=== PATIENT | male | born 1965 | race Caucasian/White ===

== ENCOUNTER → 2017-08-23 12:02 | Outpatient (CLI) | payer BC, SELFPAY ==
--- NOTE | 2017-08-23 12:09 | XR_ITS ---
XR finger RT min 2V CLINICAL INDICATION: Soft tissue swelling/mass ITS.REASON: GANGLION CYST ORDERING PHYSICIAN: Jennifer Harvey PATIENT AGE: 52 years FINDINGS: There is mild focal soft tissue swelling along the radial aspect of the PIP joint of the second finger. No abnormal calcifications evident. No bony or metallic density at this region. There are small lucencies noted involving the distal subarticular region of the second metacarpal and along the proximal and lateral aspect of the proximal phalanx of the index finger consistent with small subarticular cyst. IMPRESSION: Soft tissue swelling at the lateral aspect of the PIP joint of the second finger.
== END ==
PROVIDERS: PCP Nurse Practitioner Family; Visit Provider Nurse Practitioner Family
DX: M67.441 Ganglion, right hand (principal)
CPT/HCPCS: 73140

== ENCOUNTER → 2018-03-04 12:01 | Outpatient (CLI) | payer BC, SELFPAY ==
[2018-03-04 12:05] LABS: Microscopic, Urine URINE MICROSCOPIC (MICROSCOPIC)
[2018-03-04 12:17] LABS: Appearance,Urine CLEAR (Clear); Bilirubin,Urine Negative (Negative); Blood, Urine Negative (Negative); Color,Urine YELLOW (Yellow); Glucose,Urine (UA) Negative (Negative); Ketones,Urine Negative (Negative); Leukocyte Esterase,Urine Negative (Negative); Nitrate,Urine Negative (Negative); Protein,Urine Negative (Negative); Specific Gravity, Urine 1.015 (1.005-1.030); Urobilinogen,Urine 0.2 EU/dl (0.2)
[2018-03-04 12:19] LABS: Basophils # 0.1 K/mm3 (0-0.2); Basophils % 0.8 % (0.1-2.0); Eosinophils # 0.1 K/mm3 (0.0-0.4); Eosinophils % 1.2 % (0.1-12.0); Hematocrit 51.4 % (42.0-52.0); Hemoglobin 16.3 g/dL (14.1-18.0); Lymphocytes # 2.6 K/mm3 (0.7-4.5); Lymphocytes % 26.1 K/mm3 (10-50); Mean Corpuscular HGB Conc 31.7 g/dL (31.8-35.4); Mean Corpuscular Hemoglobin 30.2 pg (27.0-31.2); Mean Corpuscular Volume 95.1 fl (80-94); Mean Platelet Volume 7.2 fl (7.4-10.4); Monocytes # 0.5 K/mm3 (0.1-1.0); Monocytes % 4.6 % (1.7-9.3); Neutrophils # 6.7 K/mm3 (1.8-7.8); Neutrophils % 67.3 % (37.0-80.0); Platelet Count 234 K/mm3 (142-424); Red Blood Count 5.41 M/mm3 (4.60-6.20); Red Cell Distribution Width 12.7 % (11.5-17.5); White Blood Count 9.9 K/mm3 (4.8-10.8)
[2018-03-04 13:31] LABS: Bacteria,Urine 2+ /lpf; Squamous Epithelial Cell,Urine Occasional #/hpf (0-5); WBC,Urine Occasional #/hpf (0-3)
[2018-03-04 14:46] LABS: Anion Gap 10.8 mEq/L (5-15); Blood Urea Nitrogen 14 mg/dL (7-18); Carbon Dioxide 31 mmol/L (21.0-32.0); Chloride 103 mmol/L (98-107); Creatinine,Serum 1.04 mg/dL (0.70-1.30); Estimated Glomerular Filt Rate 74 ml/min (>60); GFR (African American) 90 ML/MIN (>60); Glucose 96 mg/dL (74-106); Potassium 3.8 mmoL/L (3.5-5.1); Sodium 141 mmol/L (136-145)
== END ==
PROVIDERS: Visit Provider Surgery
DX: K42.0 Umbilical hernia with obstruction, without gangrene (principal)
CPT/HCPCS: 36415; 80048; 81001; 85025; 87086; 93005

== ENCOUNTER → 2018-09-14 08:15 | Outpatient (CLI) | payer BC, SELFPAY ==
[2018-09-14 10:09] LABS: Alanine Aminotransferase 32 U/L (12-78); Albumin Level 3.7 gm/dL (3.4-5.0); Albumin/Globulin Ratio 1.2 (1.1-1.8); Alkaline Phosphatase 66 U/L (46-116); Aspartate Amino Transferase 17 U/L (15-37); Bilirubin,Total 0.5 mg/dL (0.2-1.0); Blood Urea Nitrogen 20 mg/dL (7-18); Calcium 9.1 mg/dL (8.5-10.1); Carbon Dioxide 27 mmol/L (21.0-32.0); Chloride 105 mmol/L (98-107); Chol/HDL Ratio 4.7 (1-3.5); Cholesterol 169 mg/dL (140-200); Creatinine,Serum 1.13 mg/dL (0.70-1.30); Estimated Glomerular Filt Rate 67 ml/min (>60); GFR (African American) 82 ML/MIN (>60); Globulin 3.1 gm/dl (1.3-3.2); Glucose 94 mg/dL (74-106); HDL Cholesterol 36 mg/dL (27-67); LDL Cholesterol 96 mg/dL (0-130); Sodium 142 mmol/L (136-145); Total Protein,Serum 6.8 gm/dL (6.4-8.2); Triglycerides 186 mg/dL (30-200); VLDL Cholesterol 37 mg/dL (0-40)
[2018-09-15 17:32] LABS: Testosterone,Total 268 ng/dL (264-916)
== END ==
PROVIDERS: Visit Provider Nurse Practitioner Family
DX: E78.00 Pure hypercholesterolemia, unspecified (principal); N52.9 Male erectile dysfunction, unspecified; Z12.5 Encounter for screening for malignant neoplasm of prostate
CPT/HCPCS: 36415; 80053; 80061; 84403; 84443; G0103

== ENCOUNTER → 2020-03-17 10:51 | Outpatient (CLI) | payer BC, SELFPAY ==
[2020-03-17 15:38] LABS: Coronavirus 19 IgG Antibody Negative (Negative); Coronavirus 19 IgM Antibody Negative (Negative)
== END ==
PROVIDERS: Visit Provider Surgery
DX: Z01.818 Encounter for other preprocedural examination (principal); Z12.11 Encounter for screening for malignant neoplasm of colon; Z86.010 Personal history of colon polyps
CPT/HCPCS: 36415; 86328

== ENCOUNTER 2020-03-18 06:24 | Day surgery (SDC) | payer BC, SELFPAY ==
[2020-03-17 10:24] VITALS: BMI 29.9
[2020-03-18 06:44] VITALS: BP 137/78; PULSE 87; RESP 18; TEMP 36.4; O2SAT 97
--- NOTE | 2020-03-18 07:03 | P.PN_ITS ---
[facility] Anesthesia Checklist - Patient Identification Patient Identification: Arm Band, Verbal (Name & ) - Structural Data Admitted From: Home Planned Operative Procedure/s: colon Consent for Planned Operative Procedure(s) Verified: Yes Verified Documents: History and Physical - NPO Status Verified Time NPO: 00:00 - Additional verifications Patient : No Anesthesia Reactions: No Hx Blood Transfusions: No Blood Transfusion Reaction: No Cephalosporin Allergy: No Previous Colonoscopy: No - Cardiovascular Assessment Heart Sounds: S1 & S2 Pulse Strength: Baseline Pulse Rhythm: Regular Peripheral Edema: No - Airway Assessment C-Spine Mobility Assessed: Yes TMJ Mobility Assessed: Yes Dentition: Edentulous - Neurological Assessment Level of Consciousness: Awake, Alert, Appropriate Hx Seizures: No Numbness or tingling in extremities: No - Anesthesia Plan Anesthesia Risk discussed: Yes Anesthesia Plan: Verified ASA Class: II Anesthesia Type: MAC [facility] History I have reviewed the patient's past medical history: Yes Medical History: Reports:: Hyperlipidemia Denies:: Cancer, Diabetes Mellitus Type 1, Diabetes Mellitus Type 2, Internal Pacemaker, Lung Disease, MRSA, Seizures *Have you ever received a pneumonia vaccine?: No *Have you received a flu vaccine this season?: No Other Medical History: Denies: Blood Transfusion Reaction Anesthesia experience/problems:: none Other Surgeries: Yes: Colonoscopy, Hernia Repair, Other. No: Pacemaker Amputation: No Fractures: No - *Social History Last grade of school completed: 9th or 10th Smoking Status: Current every day smoker Tobacco Type: cigarettes # Packs/Day (cigarettes): 1 Alcohol Intake: former Substance Use Type: denies use *Occupational Status:: employed Housing: house Household Members: spouse *Travel in the last 8 weeks: None Family Hx:: Cancer, Hyperlipidemia, Hypertension
[2020-03-18 07:19] VITALS: O2SAT 97
[2020-03-18 08:00] VITALS: BP 113/69; PULSE 73; RESP 18; TEMP 36.2; O2SAT 92
--- NOTE | 2020-03-18 08:03 | HMH.SCOPE ---
- Procedure: Date: 03/18/20 Patient Date of :: 1965 Procedure Performed:: Colonoscopy with polypectomy by means other than snare Indications:: History of colon polyps Diverticulosis Hemorrhoids Performing Provider:: Timbo Coronado MD Referring Provider:: . Sedation:: Monitored anesthesia care Procedure:: After informed consent was obtained the patient was taken to the endoscopy suite. Sedation ensued after the patient was transferred to the left lateral decubitus position. Pulse, blood pressure, and oxygen saturation were monitored throughout the procedure. Digital rectal exam revealed no significant abnormality. The colonoscope was placed in position. The entire colon was evaluated. The colonoscope was carefully removed and the patient was transferred to recovery in stable condition. Please see findings and specimens below for detail. Findings:: Bowel preparation relatively fair Tattoo site in right colon appeared normal Significant sigmoid spasticity/tortuosity Hemorrhoidal tags Unchanged scattered diverticulosis (most significant in sigmoid colon) Polyps (see specimens) Specimens:: Sessile polyp at 70 cm Polyp at 65 cm Recommendations:: Timing of repeat colonoscopy is pending pathology but will likely be around 3 years secondary to history of significant polyps, spasticity/tortuosity, and polyps noted on short-term repeat evaluation. Complications:: No immediate Estimated blood obtained (mL): 1
[2020-03-18 08:10] VITALS: BP 119/72; PULSE 64; RESP 18; O2SAT 92
[2020-03-18 08:20] VITALS: BP 125/81; PULSE 61; RESP 18; O2SAT 95
[2020-03-18 08:30] VITALS: BP 124/73; PULSE 66; RESP 18; O2SAT 96
== END 2020-03-18 08:33 | disposition home or self-care (01) ==
LOC: OUTP 06:25
PROVIDERS: PCP Family Medicine; Visit Provider Surgery
PROC: 0DJD8ZZ Inspection of Lower Intestinal Tract, Via Natural or Artificial Opening Endoscopic (ICD-10-PCS; CPT 45380; principal; 2020-03-18 07:30)
DX: Z12.11 Encounter for screening for malignant neoplasm of colon (principal); K56.2 Volvulus; K63.5 Polyp of colon; K57.30 Diverticulosis of large intestine without perforation or abscess without bleeding; K64.0 First degree hemorrhoids; Z86.010 Personal history of colon polyps
CPT/HCPCS: 45380; J2704

== ENCOUNTER → 2021-03-18 09:27 | Outpatient (CLI) | payer BC, SELFPAY ==
--- NOTE | 2021-03-18 09:34 | XR_ITS ---
PROCEDURE: XR LUMBAR SPINE MIN 4V CLINICAL INDICATION: ACUTE LT SIDED LOW BACK PAIN W/ LT SIDED SCIATICA COMPARISON: CR ABDACU ABD ACUTE(MUL VIEWS) from 07/20/2015 FINDINGS: There is moderate thoracolumbar scoliosis convex left with rotary component. Facet arthritic changes are present on the left at L5-S1. The SI joints have an unremarkable appearance. No acute fracture or dislocation is evident. There is degenerative disc disease T11-T12, T12-L1, L1-L2, L2-L3, L3-L4 IMPRESSION: Scoliosis with degenerative changes as described above Dictated by: Juan Edmonds MD 03/18/2021 17:45 Juan Edmonds MD in [place] 03/18/2021 17:45
== END ==
PROVIDERS: PCP Nurse Practitioner Family; Visit Provider Nurse Practitioner Family
DX: M54.42 Lumbago with sciatica, left side (principal)
CPT/HCPCS: 72110

== ENCOUNTER → 2021-11-15 07:23 | Outpatient (CLI) | payer BC, SELFPAY ==
--- NOTE | 2021-11-15 | CA_ITS ---
APPROVED REPORT Exam: Exercise Treadmill Technologist: Sarah Cooper, Ht: 5 ft 10 in Wt: 227 lbs BSA: 2.20 m2 HR: 82 bpm BP: 128/84 mmHg Medical History Medications: BP MED,,,,, Stress Test Details Test: Asher HR Resting HR: 94 bpm Max Heart Rate (APMHR): 162.482106 bpm Max HR Achieved: 136 bpm Target HR (85% APMHR): 137.675154 bpm % of APMHR: 83.95 Recovery HR: 98 bpm BP Resting BP: 144.0/88.0 mmHg Max BP: 166.0/88.0 mmHg Recovery BP: 145.0/85.0 mmHg ECG Resting ECG: NSR, left posterior fascicular block, ST-T abns inferiorly Clinical Exercise duration: 09:27 min Highest Stage Achieved: III held for completion Exercise capacity: 10.1 METs Stress ECG Conclusion Exercised 9:27 into stage 3 of Asher Protocol (stage 3 held to completion). Max HR: 134 % of PM: 83% Max BP: 166/88 METs: 10.1 Test stopped Due to: Leg cramping/claudication Symptoms: No CP. Cramping/Claudication on R lower leg. Arrhythmias/Ectopy: Occ PVC. ST-T Changes: Exaggeration of baseline ST-T abns in inferior leads. Otherwise normal ST response to exercise. Conclusion: Probably normal GXT to HR achieved but with decreased sensitivity due to baseline abns. GXT only (no imaging). Test Summary Stage 3 02:00 14.0 3.4 130 . . . . REST . . . . . . . Standing REST 05:21 0.0 0.0 94 . 144/ 88 . . Stage 1 01:00 10.0 1.7 100 . . . . Stage 1 02:00 10.0 1.7 103 . . . . Stage 1 03:00 10.0 1.7 107 . 162/ 88 . . Stage 2 01:00 12.0 2.5 109 . . . . Stage 2 02:00 12.0 2.5 114 . . . . Stage 2 03:00 12.0 2.5 119 . 166/ 88 . . Stage 3 01:00 14.0 3.4 126 . . . . Stage 3 02:00 14.0 3.4 130 . . . . Stage 3 . . . . . . . Stage held Stage 3 03:00 14.0 3.4 132 . . . . Stage 3 . . . . . . . Stage resumed Stage 3 03:27 14.0 3.4 134 . . . Stop exercise at 09:27 RECOVERY 01:00 0.0 0.0 125 . 144/ 86 . . RECOVERY 02:00 0.0 0.0 110 . 144/ 86 . . RECOVERY 03:00 0.0 0.0 105 . 141/ 92 . . RECOVERY 04:00 0.0 0.0 104 . 146/ 83 . . RECOVERY 05:00 0.0 0.0 97 . 145/ 85 . . RECOVERY 05:24 0.0 0.0 98 . 145/ 85 . . Electronically signed by : Kayden Coker MD 11/16/2021 21:04:02
--- NOTE | 2021-11-15 07:28 | CT_ITS ---
FINAL REPORT CLINICAL HISTORY: HX OF TOBACCO USE smoker, 1 ppd x years copd FINDINGS: Low-Dose Chest CT CTDI vol (mGy): 2.90 DLP (mGy-cm): 96.38 Axial images were obtained from the lung apex to the mid abdomen by computed tomography. Low-dose protocol was utilized. There is no axillary adenopathy. There is no mediastinal adenopathy. There are multiple calcified hilar lymph nodes. The heart is proper size. There is no pericardial or pleural effusion. Limited images of the upper abdomen are unremarkable. Lung window images demonstrate mild changes of emphysema and mild pulmonary scarring. There are numerous calcified granulomas in both lungs. There are several small noncalcified pulmonary nodules including a 6 mm right lower lobe nodule on image 50 and a 6 mm left lower lobe nodule on image 47. IMPRESSION: Several small noncalcified pulmonary nodules bilaterally. Lung RADS category 3. Recommend 6 month follow-up low-dose chest CT. Reviewed, Interpreted and Dictated by Deniz Jackson III, MD Transcribed by Prudence Perdue Authenticated and [facility]
== END ==
PROVIDERS: PCP Nurse Practitioner Family; Visit Provider Family Medicine
DX: Z87.891 Personal history of nicotine dependence (principal); Z12.2 Encounter for screening for malignant neoplasm of respiratory organs; I49.49 Other premature depolarization
CPT/HCPCS: 71271; 93017

== ENCOUNTER → 2022-01-23 07:01 | Outpatient (CLI) | payer BC, SELFPAY | PROVIDERS: PCP Family Medicine; Visit Provider Surgery | DX: Z01.812 Encounter for preprocedural laboratory examination (principal); Z20.822 Contact with and (suspected) exposure to COVID-19; Z12.11 Encounter for screening for malignant neoplasm of colon | CPT/HCPCS: C9803; U0003; U0005 ==

== ENCOUNTER 2022-01-24 10:18 | Day surgery (SDC) | payer BC, SELFPAY ==
[2022-01-19 14:48] VITALS: BMI 33.0
[2022-01-24 10:47] VITALS: BP 135/87; PULSE 73; RESP 18; TEMP 36.4; O2SAT 93
[2022-01-24 11:05] VITALS: O2SAT 93
--- NOTE | 2022-01-24 11:07 | P.PN_ITS ---
[facility] Medical History History of gastroesophageal reflux (GERD) Hypertension Poor peripheral circulation Surgical History History of hernia repair Family History Other No significant family history Social History Smoking Status: Current every day smoker tobacco type: cigarettes packs per day: 1 alcohol intake: former substance use type: denies use current occupational status: employed Travel in the last 8 weeks: None household members: spouse housing: house current occupation: 3M current occupational exposures/hazards: No caffeine: Yes [facility] Anesthesia Checklist Patient Identification Patient Identification: Arm Band Structural Data Admitted From: Home Planned Operative Procedure/s: colonoscopy Consent for Planned Operative Procedure(s) Verified: Yes Verified Documents: Surgical Consent and History and Physical NPO Status Verified Time NPO: 00:00 Additional verifications Anesthesia Reactions: No Hx Blood Transfusions: No Blood Transfusion Reaction: No Airway Assessment C-Spine Mobility Assessed: Yes TMJ Mobility Assessed: Yes Dentition: Edentulous Neurological Assessment Level of Consciousness: Awake and Alert Anesthesia Plan Anesthesia Risk discussed: Yes Anesthesia Plan: Verified ASA Class: II Anesthesia Type: MAC
[2022-01-24 11:43] VITALS: BP 107/69; PULSE 71; RESP 16; TEMP 36.3; O2SAT 93
--- NOTE | 2022-01-24 11:43 | HMH.SCOPE ---
Procedure: Date: 01/24/22 Patient Date of :: 1965 Procedure Performed:: Colonoscopy with polypectomy Indications:: History of colon polyps Last colonoscopy February 2020 revealed a right colon tattoo (prior serrated adenoma excision site) that was essentially normal. Lack of relaxation was fairly significant. Unchanged diverticulosis and hemorrhoidal tissue noted. An adenoma was excised at 65 cm. Performing Provider:: Timbo Coronado MD Referring Provider:: . Sedation:: Monitored anesthesia care Procedure:: After informed consent was obtained the patient was taken to the endoscopy suite. Sedation ensued after the patient was transferred to the left lateral decubitus position. Pulse, blood pressure, and oxygen saturation were monitored throughout the procedure. Digital rectal exam revealed no significant abnormality. The colonoscope was placed in position. The entire colon was evaluated. The colonoscope was carefully removed and the patient was transferred to recovery in stable condition. Please see findings and specimens below for detail. Findings:: Bowel preparation moderate Profound lack of relaxation Fairly severe tortuosity Unchanged diverticulosis Unchanged hemorrhoids (hemorrhoidal tag/cushions) Polyps (see specimens) Specimens:: Sessile lobulated polyp at 50 cm (cold snare) Recommendations:: Timing of repeat colonoscopy is pending pathology but likely be between 2-3 years secondary to ongoing limitations in visualization and history of significant polyps. Complications:: No immediate Estimated blood obtained (mL): 0
[2022-01-24 11:53] VITALS: BP 122/70; PULSE 65; RESP 16; O2SAT 92
[2022-01-24 12:03] VITALS: BP 117/72; PULSE 59; RESP 16; O2SAT 96
[2022-01-24 12:13] VITALS: BP 133/73; PULSE 69; RESP 16; TEMP 36.3; O2SAT 96
== END 2022-01-24 12:13 | disposition home or self-care (01) ==
PROVIDERS: PCP Family Medicine; Visit Provider Surgery
PROC: 0DJD8ZZ Inspection of Lower Intestinal Tract, Via Natural or Artificial Opening Endoscopic (ICD-10-PCS; CPT 45385; principal; 2022-01-24 11:30)
DX: Z12.11 Encounter for screening for malignant neoplasm of colon (principal); K63.5 Polyp of colon; Z86.010 Personal history of colon polyps; F17.210 Nicotine dependence, cigarettes, uncomplicated; Z79.899 Other long term (current) drug therapy
CPT/HCPCS: 45385; 88305

== ENCOUNTER → 2022-04-10 07:43 | Outpatient (CLI) | payer BC, SELFPAY ==
--- NOTE | 2022-04-10 07:47 | CT_ITS ---
FINAL REPORT TECHNIQUE: Axial images were obtained from the lung apex to the mid abdomen by computed tomography. Coronal reformatted images were obtained. This study was performed with techniques to keep radiation doses as low as reasonably achievable, (ALARA). Individualized dose reduction techniques using automated exposure control or adjustment of mA and/or kV according to the patient''s size were employed. CLINICAL HISTORY: ABN CT OF CHEST, 6 month follow up COMPARISON: November 15, 2021 FINDINGS: There is no axillary adenopathy. There are multiple calcified mediastinal and hilar lymph nodes. Heart size is normal. There is no pericardial or pleural effusion. Limited images of the upper abdomen are unremarkable. There are numerous calcified granulomas bilaterally. A right lower lobe nodule measures 6 mm and was 6 mm, well seen on image 45. There is a stable 6 mm pleural base nodule in the left lower lobe well seen on image 44. Other small nodules are stable. No new mass or nodule is identified. There are mild changes of emphysema. IMPRESSION: 6 mm right lower lobe nodule, stable. 6 mm pleural based left lower lobe nodule, stable. Recommend additional follow-up in 12 months. Reviewed, Interpreted and Dictated by Deniz Jackson III, MD Transcribed by Prudence Perdue Authenticated and [facility]
== END ==
PROVIDERS: PCP Family Medicine; Visit Provider Family Medicine
DX: R93.89 Abnormal findings on diagnostic imaging of other specified body structures (principal)
CPT/HCPCS: 71250

== ENCOUNTER → 2022-08-30 10:41 | Outpatient (CLI) | payer BC, SELFPAY ==
--- NOTE | 2022-08-30 10:51 | XR_ITS ---
FINAL REPORT CLINICAL HISTORY: BACK PAIN COMPARISON: 03/18/2021 FINDINGS: LUMBOSACRAL SPINE SERIES Five views of the lumbosacral spine were obtained. There is no fracture present. Lumbar scoliosis convex to the left measuring about 35 degrees. On the lateral view there are mild to moderate hypertrophic changes at L2-3, L3-4, and L5-S1. IMPRESSION: Degenerative changes with no acute process. Reviewed, Interpreted and Dictated by Du Benavides MD Transcribed by Ladan Lew Authenticated and [facility]
== END ==
PROVIDERS: PCP Family Medicine; Visit Provider Family Medicine
DX: M54.50 Low back pain, unspecified (principal)
CPT/HCPCS: 72110

== ENCOUNTER → 2022-09-06 07:56 | Outpatient (CLI) | payer BC, SELFPAY ==
--- NOTE | 2022-09-06 08:00 | US_ITS ---
FINAL REPORT CLINICAL HISTORY: AAA FINDINGS: Limited sonographic images of the abdominal aorta were obtained. The aorta measures up to 1.8 cm. No significant plaque disease is present. IMPRESSION: No evidence of abdominal aortic aneurysm. Reviewed, Interpreted and Dictated by Jesi Cristobal MD Transcribed by Elma Mike Authenticated and [facility]
== END ==
PROVIDERS: PCP Family Medicine; Visit Provider Family Medicine
DX: Z13.6 Encounter for screening for cardiovascular disorders (principal)
CPT/HCPCS: 76770

== ENCOUNTER 2023-08-20 17:28 | Outpatient (CLI) | payer BC, SELFPAY ==
--- NOTE | 2023-08-20 17:42 | ECG_ITS ---
APPROVED REPORT Exam: Resting ECG HR:83 bpm ECG Measurements Heart Rate 83 AXES MO 191 P 37 QRSd 93 QRS 46 QT 328 T 9 QTc 368 Conclusion SINUS RHYTHM WITH FREQUENT SUPRAVENTRICULAR PREMATURE COMPLEXES NONSPECIFIC T-WAVE ABNORMALITY ABNORMAL RHYTHM ECG UNCONFIRMED REPORT Electronically signed by : Kayden Coker MD 08/22/2023 08:28:10
== END 2023-08-20 23:59 | disposition home or self-care (01) ==
LOC: RT 17:29
PROVIDERS: PCP Family Medicine; Visit Provider Family Medicine
DX: I49.9 Cardiac arrhythmia, unspecified (principal)
CPT/HCPCS: 93005

== ENCOUNTER 2023-08-22 09:47 | Outpatient (CLI) | payer BC, SELFPAY ==
--- NOTE | 2023-08-22 | US_ITS ---
FINAL REPORT CLINICAL HISTORY: smoker, PVD-varicosities, cardiac arrhythmia, Right leg pain x 8 years, bilateral leg weakness with claudication COMPARISON: None FINDINGS: ANKLE-BRACHIAL PRESSURE INDICES Pressure indices are as follows: RIGHT LOWER EXTREMITY: Ankle-brachial pressure index: 0.85 Comments: Mildly depressed LEFT LOWER EXTREMITY: Ankle-brachial pressure index: 1.0 Comments: Normal IMPRESSION: Mildly depressed on the right which may be related to mild arterial occlusive disease. No evidence of significant obstructive peripheral vascular disease of the left lower extremity. Reviewed, Interpreted and Dictated by Du Benavides MD Transcribed by Ladan Lew Authenticated and . [facility]
[2023-08-22 10:57] LABS: Basophils # 0.1 K/mm3 (0-0.2); Basophils % 0.7 % (0.1-2.0); Eosinophils # 0.1 K/mm3 (0.0-0.4); Eosinophils % 1.1 % (0.1-12.0); Hematocrit 51.4 % (42.0-52.0); Hemoglobin 16.6 g/dL (14.1-18.0); Lymphocytes # 1.9 K/mm3 (0.7-4.5); Lymphocytes % 21.5 % (10-50); Mean Corpuscular HGB Conc 32.3 g/dL (31.8-35.4); Mean Corpuscular Hemoglobin 31.6 pg (27.0-31.2); Mean Corpuscular Volume 98.1 fl (80-94); Mean Platelet Volume 8.2 fl (7.4-10.4); Monocytes # 0.5 K/mm3 (0.1-1.0); Monocytes % 5.8 % (1.7-9.3); Neutrophils # 6.1 K/mm3 (1.8-7.8); Neutrophils % 70.9 % (37.0-80.0); Platelet Count 195 K/mm3 (142-424); Red Blood Count 5.24 M/mm3 (4.60-6.20); Red Cell Distribution Width 13.4 % (11.5-17.5); White Blood Count 8.6 K/mm3 (4.8-10.8)
[2023-08-22 11:42] LABS: Anion Gap 8.4 mEq/L (5-15); Blood Urea Nitrogen 21 mg/dl (9-20); Carbon Dioxide 29 mmol/L (22.0-30.0); Chloride 107 mmol/L (98-107); Estimated Glomerular Filt Rate 68 ml/min (>60); GFR (African American) 83 ML/MIN (>60); Glucose 86 mg/dl (74-100); Potassium 4.4 mmoL/L (3.5-5.1); Sodium 140 mmol/L (136-145)
[2023-08-22 12:01] LABS: Troponin I < 0.01 ng/ml (0.00-0.034)
[2023-08-22 12:12] LABS: Thyroid Stimulating Hormone 2.04 uIU/mL (0.465-4.68)
== END 2023-08-22 23:59 | disposition home or self-care (01) ==
LOC: RT 09:50
PROVIDERS: Family Medicine; PCP Family Medicine; Visit Provider Family Medicine
DX: I49.9 Cardiac arrhythmia, unspecified (principal); R07.89 Other chest pain; R29.898 Other symptoms and signs involving the musculoskeletal system
CPT/HCPCS: 36415; 80048; 84443; 84484; 85025; 93225; 93923

== ENCOUNTER 2023-08-27 11:15 | Outpatient (CLI) | payer BC, SELFPAY ==
--- NOTE | 2023-08-27 11:16 | CA_ITS ---
APPROVED REPORT EXAM: Comprehensive 2D, Doppler, and color-flow Echocardiogram Trace Evidence Technician: Zonia Wyatt RVT Ht: 5 ft 10 in Wt: 238lbs BSA: 2.25 BP: 158/93 mmHg Indications: CP,EDEMA,ABN EKG,A-FIB,AV BLOCK,HTN,SMOKER,SEXTON,EF CHECK PRE PACER PLACEMENT TDS-LIMITED WINDOWS 2D Dimensions LA Volume 62.70 mL LA Volume Index 27.87 mL/m2 (M/F) 16-34 M-Mode Dimensions RVDd 3.23 cm (0.9-2.6) LA Diam 4.89 cm (1.9-4.0) LVDd 3.74 cm (3.5-5.7) LVDs 2.68 cm (3.5-5.7) IVSd 1.10 cm (0.6-1.1) PWd 0.51 cm (0.6-1.1) EF (Teich) 55.50% FS 28.30% EDV (Teich) 59.60 mL TAPSE 2.81 (<1.7) ESV (Teich) 26.50 mL LV Diastology E Decel Time 150 (160-240 msec) E/A Ratio 0.9 Aortic Valve INDIRA Index 1.84 cm2/m2 AoV Peak Rommel. 114.0 (50-130 cm/s) AO Peak GR. 5.20 mmHg AO Mean GR. 3.10 (<5 mmHg) AO VTI 22.0 (18-25 cm) INDIRA (VTI) 4.24 (2.5-4.5 cm2) Mitral Valve MV E Max Rommel. 75.0 (40-130 cm/s) MV A Velocity 79.0 (40-130 cm/s) E/A Ratio 0.94 MV PHT 44.0 ms Pulmonary Valve PV Peak Velocity 88.0 (50-150 cm/s) Tricuspid Valve TR P. Velocity 203.00 cm/s RAP Estimate 10.00 mmHg RVSP 26.50 mmHg Left Ventricle The left ventricle is normal size. The left ventricular systolic function is normal. The left ventricular ejection fraction is within the normal range. There is normal left ventricular wall thickness. There is normal LV segmental wall motion. The left ventricular diastolic function is normal. LVEF is 55%. Right Ventricle Right ventricle is moderately dilated. Right ventricle is mildly hypokinetic. Atria The left atrium is mildly dilated. The right atrium size is normal. There is no Doppler evidence of interatrial shunt. Aortic Valve The aortic valve is mildly thickened. There is no aortic valvular stenosis. Trace aortic regurgitation is present. Mitral Valve The mitral valve is normal in structure. No evidence of mitral valve stenosis. Trace mitral regurgitation. Tricuspid Valve The tricuspid valve leaflets are thin and pliable. Trace tricuspid regurgitation. RVSP is normal. Pulmonic Valve The pulmonary valve is normal in structure. Trace pulmonic regurgitation. Great Vessels The aortic root is normal in size. The ascending aorta is normal in size. IVC is normal in size and collapses >50% with inspiration. Pericardium There is no pericardial effusion. Other Information Study Quality: Fair Conclusion Normal LV systolic function. Moderate RV dilation with mild reduction in RV function. Mild LA dilation. No significant valvular stenosis or regurgitation. Electronically signed by : Whit Pratt MD 08/29/2023 23:28:32
--- NOTE | 2023-08-27 11:16 | CA_ITS ---
FINAL REPORT CLINICAL HISTORY: edema in BLE, cp, smoker, SEXTON, HTN, AFIB, abn EKG. COMPARISON: None FINDINGS: Multiple transverse and longitudinal scans were performed of the femoral popliteal deep venous system, with augmentation and compression maneuvers. Normal phasic flow was noted in the visualized deep venous system. No intraluminal increased echogenicity is noted to suggest thrombus. There is normal compression and augmentation of the venous structures. No abnormal venous collaterals are seen. IMPRESSION: No evidence of deep venous thrombosis of the bilateral lower extremities. Reviewed, Interpreted and Dictated by Jesi Cristobal MD Transcribed by Ladan Lew Authenticated and [facility]
== END 2023-08-27 23:59 | disposition home or self-care (01) ==
LOC: RT 11:16
PROVIDERS: PCP Family Medicine; Visit Provider Physician Assistant
DX: R07.89 Other chest pain (principal); R60.0 Localized edema; I48.0 Paroxysmal atrial fibrillation; I45.5 Other specified heart block; R94.31 Abnormal electrocardiogram [ECG] [EKG]; I44.1 Atrioventricular block, second degree; I10 Essential (primary) hypertension; Z92.89 Personal history of other medical treatment; Z87.19 Personal history of other diseases of the digestive system; Z72.0 Tobacco use
CPT/HCPCS: 93306; 93970

== ENCOUNTER 2023-08-28 10:05 | Day surgery (SDC) | payer BC, SELFPAY ==
[2023-08-28] VITALS (8 sets, daily range): BP systolic 117–156; BP diastolic 74–108; PULSE 65–86; RESP 18; TEMP 36.9; O2SAT 94–98; BMI 34.1
--- NOTE | 2023-08-28 07:14 | IR_ITS ---
APPROVED REPORT Patient Location: Outpatient Field Tech: MEREDITH Palm RT (R) PROCEDURES 1. Pocket formation for Permanent Pacemaker Placement. 2. Placement of an atrial sensing and pacing coil into the right atrial appendage. 3. Placement of a ventricular sensing and pacing coil in the right ventricular apex. 4. Permanent Pacemaker Placement. INDICATION SICK SINUS SYNDROME, 4 SECOND PAUSE Informed consent was obtained prior to the procedure. COMPLICATIONS NONE Estimated Blood Loss: LESS THAN 10 ML TECHNIQUE 1% Lidocaine with epinephrine used to anesthetized the left anterior aspect of the chest. Scalpel was used to make the initial cutaneous incision while electrocautery was used to dissect down tinto the fascia. The fascia was lifted off the pectoralis muscle and digitally manipulated creating a pocket for the pacemaker. The patient was then placed in Trendelenburg position and the subclavian vein was accessed twice via the Selinger technique, there are two wires in the vein. A 6 Peruvian sheath was placed under fluoroscopic guidance into the subclavian vein over one of the wires while keeping the other wire in place within the subclavian vein. The dilator was removed from the sheath. Using fluoroscopic guidance, the ventricular lead was placed into the right ventricular apex, screwed and secured into place. Electronic interrogation proved acceptable thresholds and voltage within the lead. Using 3-0 silk, the ventricular lead was then secured into place. Lead was secured to the facia using the 3-0 silk. Following this, the sheath was pealed away. An additional 6 Peruvian fresh sheath and dilator was placed over the existing wire. Using fluoroscopic guidance, the atrial lead was the placed into the right atrial appendage and screwed and secured in place. Electrical interrogation demonstrated acceptable thresholds and voltage number. The atrial lead was then secured into place using 3-0 silk. 1 gram of Ancef was used to flush the pocket. Following the pacemaker generator being secured to the fascia and in place, Monocryl was used to close the subcutaneous layers while matt were used to close the cutaneous layer. A pressure dressing was placed and the patient was transferred to the postop holding area in stable condition for postoperative care. INTERROGATION Generator Model number: iKoa [id number] Generator Serial number: [id number] Atrial lead model number: Tendril STS [id number] Atrial lead serial number: [id number] P-wave: 5.0 mV Impedance: 450 Ohms Threshold: 0.75V@0.4ms Right Ventricular lead model number: Kiara STS [id number] Right Ventricular lead serial number: [id number] R-wave: 12.0mV Impedance: 790 Ohms Threshold: 0.75V@0.4ms Pacing Parameters: Mode: DDDR Base/Max Track: 70 ppm / 130 ppm No diaphragmatic stimulation at 10 volts. IMPRESSION 1. Successful pocket formation for Permanent Pacemaker Placement. 2. Successful placement of an atrial sensing and pacing coil into the right atrial appendage. 3. Successful placement of a ventricular sensing and pacing coil in the right ventricular apex. 4. Successful permanent Pacemaker Placement. PLAN 1. Postop wound care. Electronically signed by : Terry Grayson MD 08/30/2023 11:44:58
--- NOTE | 2023-08-28 10:07 | P.PNANES_ITS ---
[facility] Disclaimer: The information contained in this section may have been updated after the patient was seen, as this information can be updated by other users. Medical History Abnormal EKG Hypertension Poor peripheral circulation History of gastroesophageal reflux (GERD) Surgical History History of colonoscopy History of hernia repair Family History Other No significant family history Social History Smoking Status: Current every day smoker tobacco type: cigarettes packs per day: 1 alcohol intake: former substance use type: denies use current occupational status: employed Travel in the last 8 weeks: None household members: spouse housing: house current occupation: 3M current occupational exposures/hazards: No caffeine: Yes [facility] Anesthesia Checklist Patient Identification Patient Identification: Arm Band and Verbal (Name & ) Structural Data Admitted From: Home Planned Operative Procedure/s: Pacemaker placement Consent for Planned Operative Procedure(s) Verified: Yes NPO Status Verified Time NPO: 00:00 Additional verifications Anesthesia Reactions: No Hx Blood Transfusions: No Blood Transfusion Reaction: No Airway Assessment Mallampati Score:: Class III C-Spine Mobility Assessed: Yes TMJ Mobility Assessed: Yes Dentition: Edentulous Neurological Assessment Level of Consciousness: Awake Hx Seizures: No Numbness or tingling in extremities: No Anesthesia Plan Anesthesia Risk discussed: Yes Anesthesia Plan: Verified ASA Class: III Anesthesia Type: MAC
[2023-08-28 10:39] LABS: Basophils # 0.1 K/mm3 (0-0.2); Eosinophils # 0.1 K/mm3 (0.0-0.4); Eosinophils % 1.7 % (0.1-12.0); Hemoglobin 16.6 g/dL (14.1-18.0); Lymphocytes # 2.4 K/mm3 (0.7-4.5); Lymphocytes % 29.4 % (10-50); Mean Corpuscular HGB Conc 32.5 g/dL (31.8-35.4); Mean Corpuscular Hemoglobin 30.8 pg (27.0-31.2); Mean Corpuscular Volume 94.7 fl (80-94); Mean Platelet Volume 8.1 fl (7.4-10.4); Monocytes # 0.4 K/mm3 (0.1-1.0); Monocytes % 4.7 % (1.7-9.3); Neutrophils # 5.2 K/mm3 (1.8-7.8); Neutrophils % 63.2 % (37.0-80.0); Platelet Count 205 K/mm3 (142-424); Red Blood Count 5.38 M/mm3 (4.60-6.20); Red Cell Distribution Width 13.3 % (11.5-17.5); White Blood Count 8.3 K/mm3 (4.8-10.8)
[2023-08-28 10:47] LABS: Chloride 110 mmol/L (98-107)
[2023-08-28 10:48] LABS: Potassium 3.8 mmoL/L (3.5-5.1); Sodium 144 mmol/L (136-145)
[2023-08-28 10:51] LABS: Blood Urea Nitrogen 18 mg/dl (9-20); Calcium 9.6 mg/dl (8.4-10.2); Carbon Dioxide 32 mmol/L (22.0-30.0); Creatinine Clearance Estimated 109 mL/min (50-200); Estimated Glomerular Filt Rate 68 ml/min (>60); GFR (African American) 83 ML/MIN (>60); Glucose 97 mg/dl (74-100)
[2023-08-28 11:06] LABS: Anion Gap 5.8 mEq/L (5-15)
[2023-08-28] MEDS: CEFAZOLIN SODIUM 1 GM in 0.9 % SODIUM CHLORIDE 50 ML IV (12:04)
[2023-08-28] MEDS: diphenhydrAMINE 50MG/ML VIAL 50 MG IV (12:05)
[2023-08-28] MEDS: LIDOCAINE 1% W/EPI 1:100,000 20ML VIAL 20 ML SQ (12:05)
[2023-08-28] MEDS: CEFAZOLIN 1GM VIAL 1 GM TP (12:05)
--- NOTE | 2023-08-28 13:12 | XR_ITS ---
FINAL REPORT CLINICAL HISTORY: Confirm pacemaker/AID placement FINDINGS: No acute pulmonary opacity is present. There is no evidence of effusion or pneumothorax. Mediastinum is unremarkable. There is mild cardiomegaly. Left subclavian dual lead pacer device is identified. Leads project in the right atrium and right ventricle. IMPRESSION: Pacemaker as above. Reviewed, Interpreted and Dictated by Jesi Cristobal MD Transcribed by Elma Mike Authenticated and [facility]
== END 2023-08-28 15:01 | disposition home or self-care (01) ==
PROVIDERS: PCP Family Medicine; Visit Provider Internal Medicine
DX: I49.5 Sick sinus syndrome (principal); I48.0 Paroxysmal atrial fibrillation; I44.1 Atrioventricular block, second degree; F17.210 Nicotine dependence, cigarettes, uncomplicated; I10 Essential (primary) hypertension; R94.31 Abnormal electrocardiogram [ECG] [EKG]
CPT/HCPCS: 33208; 71045; 80048; 85025; C1785; C1898; J2704

== ENCOUNTER 2023-10-11 07:09 | Outpatient (CLI) | payer BC, SELFPAY ==
--- NOTE | 2023-10-11 | CA_ITS ---
APPROVED REPORT Exam: Pharmacologic Technologist: Patrica Madera, Ht: 5 ft 10 in Wt: 238 lbs BSA: 2.25 m2 HR: 70 bpm BP: 151/74 mmHg Rhythm: NSR, NS T wave abns inferiorly Indications: Dyspnea Medical History Medications: Aspirin,,,,, Metoprolol,,,,, Cardiac Risk Factors: HTN, Smoking Stress Test Details Test: LEXISCAN HR Resting HR: 70 bpm Max Heart Rate (APMHR): 160 bpm Max HR Achieved: 103 bpm Target HR (85% APMHR): 136 bpm % of APMHR: 64 Recovery HR: 84 bpm BP Resting BP: 151/74 mmHg Max BP: 151/74 mmHg Recovery BP: 146.0/83.0 mmHg ECG Resting ECG: NSR, NS T wave abns inferiorly Stress ECG: No significant ST changes Arrhythmia: PVCs, ventricular couplets Clinical Exercise duration: 04:00 min Highest Stage Achieved: Exercise capacity: 1.0 METs Stress ECG Conclusion During lexiscan pt experinced SOA, head discomfort, mild stomach discomfort. Ectopy: One ventricular couplet. Rare PVC noted. ST changes: None Conclusion: Unremarkable lexiscan stress. Myoview images reported separately. Test Summary REST . . . . . . . Sitting REST 04:53 . . 70 . 151/ 74 . . Stage 1 01:00 . . 90 . . . . Stage 2 01:00 . . 99 . 138/ 84 . . Stage 3 01:00 . . 90 . 148/ 82 . . Stage 4 01:00 . . 86 . . . Stop exercise at 04:00 RECOVERY 01:00 . . 83 . . . . RECOVERY 02:00 . . 78 . . . . RECOVERY 03:00 . . 79 . 133/ 81 . . RECOVERY 03:30 . . 76 . 133/ 81 . . Electronically signed by : Whit Pratt MD 10/14/2023 21:23:50
--- NOTE | 2023-10-11 07:09 | NM_ITS ---
APPROVED REPORT Exam: Nuclear Stress Test Indication: soa..palpitations..fatigue Patient Location: Outpatient Stress Tech: Patrica WILDE Tech:Summer OlearyMEREDITH RT(R)(N) Ht: 5 ft 10 in Wt: 230 lbs HR: 70 bpm BP: 151/74 mmHg BSA: 2.21 m2 TID: 1.22 BMI: 32.9 History: soa..palpitations..fatigue Procedure: Patient received 0.4 mg of intravenous Lexiscan, resting heart rate 70 bpm, resting blood pressure 151/74 mmHg, with Lexiscan maximum heart rate achieved was 103 bpm which is 85 % of the maximum predicted heart rate and blood pressure was 151/74 mmHg. With Lexiscan, patient denied any complaint of chest pain. Cardiac Stress and Resting SPECT Images: Cardiac Stress and Resting SPECT images were obtained using technetium 99m Myoview 32.5 mCi stress and 10.50 mCi at rest. Resting and stress imaging in supine and prone positions demonstrate no evidence of fixed or reversible perfusion defects. There is increase in transient ischemic dilatation ratio (TID 1.22), suggestive of possible multivessel disease or balanced ischemia. Gated imaging demonstrates low normal global and regional LV systolic function. LVEF is calculated at 52%. Conclusion: No evidence of fixed or reversible perfusion defects. There is increase in transient ischemic dilatation ratio (TID 1.22), suggestive of possible multivessel disease or balanced ischemia. Gated imaging demonstrates low normal global and regional LV systolic function. LVEF is calculated at 52%. Electronically signed by : Whit Pratt MD 10/14/2023 21:25:14
[2023-10-11] MEDS: ISOTOPE MYOVIEW (PER STUDY) 1 DOSE IV (09:49)
[2023-10-11] MEDS: SODIUM CHLORIDE 0.9% 10ML SYR (RAD ONLY) 10 ML IV ×2 (09:49)
[2023-10-11] MEDS: REGADENOSON 0.4MG/5ML SYRINGE 0.4 MG IV (09:49)
== END 2023-10-11 23:59 | disposition home or self-care (01) ==
LOC: RAD 07:09
PROVIDERS: PCP Family Medicine; Visit Provider Nurse Practitioner Family
DX: R06.09 Other forms of dyspnea (principal); I48.0 Paroxysmal atrial fibrillation; Z95.0 Presence of cardiac pacemaker
CPT/HCPCS: 78452; 93017; 93018; A9502; J2785

== ENCOUNTER 2023-10-23 10:37 | Outpatient (CLI) | payer BC, SELFPAY ==
[2023-10-23 10:52] LABS: Basophils # 0.1 K/mm3 (0-0.2); Basophils % 0.9 % (0.1-2.0); Eosinophils # 0.1 K/mm3 (0.0-0.4); Eosinophils % 1.5 % (0.1-12.0); Hematocrit 51.3 % (42.0-52.0); Hemoglobin 16.7 g/dL (14.1-18.0); Lymphocytes # 2.2 K/mm3 (0.7-4.5); Lymphocytes % 25.4 % (10-50); Mean Corpuscular HGB Conc 32.6 g/dL (31.8-35.4); Mean Corpuscular Hemoglobin 30.7 pg (27.0-31.2); Mean Corpuscular Volume 94.2 fl (80-94); Mean Platelet Volume 8.4 fl (7.4-10.4); Monocytes # 0.4 K/mm3 (0.1-1.0); Neutrophils # 5.8 K/mm3 (1.8-7.8); Neutrophils % 67.3 % (37.0-80.0); Platelet Count 208 K/mm3 (142-424); Red Blood Count 5.44 M/mm3 (4.60-6.20); Red Cell Distribution Width 13.7 % (11.5-17.5); White Blood Count 8.6 K/mm3 (4.8-10.8)
[2023-10-23 11:58] LABS: Chloride 102 mmol/L (98-107); Potassium 4.2 mmoL/L (3.5-5.1); Sodium 138 mmol/L (136-145)
[2023-10-23 12:00] LABS: Alanine Aminotransferase 18 U/L (12-78); Alkaline Phosphatase 76 U/L (38-126); Anion Gap 8.2 mEq/L (5-15); Aspartate Amino Transferase 23 U/L (17-59); Bilirubin,Indirect 0.7 mg/dL (0.0-0.9); Bilirubin,Total 0.7 mg/dl (0.2-1.3); Bilirubin,Unconjugated 0.7 mg/dL (0.0-1.1); Blood Urea Nitrogen 18 mg/dl (9-20); Carbon Dioxide 32 mmol/L (22.0-30.0); Estimated Glomerular Filt Rate 62 ml/min (>60); GFR (African American) 75 ML/MIN (>60); Total Protein,Serum 6.5 g/dl (6.3-8.2)
[2023-10-23 12:01] LABS: Calcium 9.5 mg/dl (8.4-10.2); Cholesterol 198 mg/dl (140-200); Glucose 87 mg/dl (74-100); HDL Cholesterol 33 mg/dl (40-60); Triglycerides 272 mg/dl (30-150); VLDL Cholesterol 54 mg/dL (0-40)
[2023-10-23 12:12] LABS: Direct LDL Cholesterol 109.28 mg/dL (100-129)
[2023-10-23 12:18] LABS: Free T4 (Free Thyroxine) 1.05 ng/dl (0.78-2.19)
[2023-10-23 12:31] LABS: Thyroid Stimulating Hormone 2.02 uIU/mL (0.465-4.68)
== END 2023-10-23 23:59 | disposition home or self-care (01) ==
LOC: LAB 10:37
PROVIDERS: PCP Family Medicine; Visit Provider Physician Assistant
DX: I73.9 Peripheral vascular disease, unspecified (principal); R93.1 Abnormal findings on diagnostic imaging of heart and coronary circulation; R68.89 Other general symptoms and signs; Z72.0 Tobacco use; I48.0 Paroxysmal atrial fibrillation; Z95.0 Presence of cardiac pacemaker; Z87.19 Personal history of other diseases of the digestive system; I10 Essential (primary) hypertension; R94.31 Abnormal electrocardiogram [ECG] [EKG]
CPT/HCPCS: 36415; 80048; 80061; 80076; 83735; 84439; 84443; 85025

== ENCOUNTER 2023-11-06 08:21 | Day surgery (SDC) | payer BC, SELFPAY ==
[2023-11-06] VITALS (12 sets, daily range): BP systolic 110–159; BP diastolic 84–108; PULSE 67–88; RESP 17–18; TEMP 36.6; O2SAT 93–96; BMI 33.8
--- NOTE | 2023-11-06 07:21 | IR_ITS ---
APPROVED REPORT Patient Location: Outpatient Track Fitter: MEREDITH Dueñas RT (R) PROCEDURES Left heart catheterization Left ventriculogram Selective coronary angiogram Drug-eluting stent deployment to the proximal and distal dominant right coronary artery in a noncontiguous manner Catheter placement in the left external iliac artery Left external iliac artery antegrade angiogram with unilateral runoff to the left foot Catheter placement in the right external iliac artery Right external iliac artery antegrade angiogram with unilateral runoff to the right foot Catheter placed into the distal abdominal aorta Distal abdominal aortogram INDICATION Coronary artery disease, Angina pectoris, Abnormal Myoview, Abnormal MIGDALIA, Adalberto claudication class III, Peripheral artery disease Informed consent was obtained prior to the procedure. COMPLICATIONS NONE Estimated Blood Loss: LESS THAN 10 ML TECHNIQUE One percent lidocaine used to anesthetize the right anterior aspect of the wrist. The right radial artery was accessed via the Seldinger technique. A 6 Turkmen sheath was placed in the right radial artery. 2.5 mg of Verapamil, 800 mcg of nitroglycerin, 1mg Lidocaine and 5000 U Heparin were given through the arterial sheath. The papa catheter was also used to perform left heart catheterization, left ventriculogram and selective coronary angiogram. At the end of the diagnostic angiogram therapeutic heparin was administered giving a therapeutic ACT and the guide catheter was placed in the right coronary followed by Choice PT extra-support wire placed distally. A 4 mm x 26 mm Jelani frontier stent was deployed initially at 16 harry distally reducing the stenosis to 20%. Following this a 4 mm x 38 mm Austin frontier stent was then placed in the proximal to mid segment and deployed at 20 harry reducing the stenosis. A 4 mm x 12 mm noncompliant balloon was then placed in the mid to distal portion of the for stent deployed at 24 harry to post dilate. The balloon was brought back into the proximal and midportion of the 38 mm stent deployed at 24 harry in order to post dilate. WES-3 flow was present before and after the procedure. Following this the catheter was then placed in the descending aorta and an exchange was made for the Poppa catheter for the PV multi curve catheter. PV multi curve catheter was placed in the left external iliac artery where antegrade angiography and unilateral runoff to the left foot was performed. This procedure was repeated into the right external iliac artery. The catheter was then pulled back to the distal abdominal aorta and distal abdominal aortography was performed. At the end the procedure the apparatus was removed the sheath was removed good hemostasis was achieved using TR banding patient was transferred to the postop putting in stable condition ANGIOGRAPHIC RESULTS The left main artery Normal The left anterior descending artery Has mild proximal 10% luminal irregularities The circumflex artery Nondominant normal The right coronary artery Large dominant with a proximal 60 to 70% stenosis in the distal 60 to 70% stenosis The PERRIN ventriculogram reveals Normal 65% The left ventricular end-diastolic pressure 20 mmHg Distal abdominal aorta is patent Bilateral common internal and external iliac arteries are patent Bilateral common femoral arteries are patent Bilateral profunda femoris arteries are patent Right superficial femoral artery has diffuse moderate atheromatous plaque with a focal 80 to 90% mid vessel stenosis right popliteal artery has mild to moderate atheromatous plaque with no stenosis greater than 20 to 30%. Distally the flow is slow below the knee. The anterior tibialis artery is widely patent as is the posterior tibialis artery and peroneal artery. Flow remains stream is slow into the right foot Left superficial femoral artery is widely patent with diffuse 20 and 30% atheromatous plaque. At Brock's canal there is a long 40% stenosis. The popliteal artery is widely patent with diffuse 30% atheromatous plaque. Flow is slow below the knee however the anterior posterior tibialis arteries are patent as is the peroneal artery IMPRESSION Severe single-vessel disease involving the proximal and distal dominant right coronary Successful stenting of the proximal and distal dominant right coronary severe disease reduced to 0% with 2 noncontiguous drug-eluting stents Normal ejection fraction Elevated LVEDP Severely diseased right SFA stenosis Severe bilateral infrageniculate microvascular disease as evidenced by slow flow PLAN 1. Dual antiplatelet therapy 2. Patient be brought back to the Front Desk Person in 2 weeks will undergo shockwave lithotripsy followed by drug-coated balloon angioplasty to the right SFA 3. LDL less than 55 to be achieved with high intensity statin 4. Avoidance of tobacco products 5. Risk factor modification 6. Cardiac rehabilitation following revascularization of right SFA Electronically signed by : Terry Grayson MD 11/06/2023 14:49:00
[2023-11-06 08:51] LABS: Basophils # 0.1 K/mm3 (0-0.2); Basophils % 1.3 % (0.1-2.0); Eosinophils # 0.1 K/mm3 (0.0-0.4); Eosinophils % 1.5 % (0.1-12.0); Hematocrit 53.3 % (42.0-52.0); Hemoglobin 17.5 g/dL (14.1-18.0); Lymphocytes % 25.3 % (10-50); Mean Corpuscular HGB Conc 32.9 g/dL (31.8-35.4); Mean Corpuscular Hemoglobin 30.5 pg (27.0-31.2); Mean Corpuscular Volume 92.7 fl (80-94); Mean Platelet Volume 8.2 fl (7.4-10.4); Monocytes # 0.4 K/mm3 (0.1-1.0); Monocytes % 5.2 % (1.7-9.3); Neutrophils # 5.4 K/mm3 (1.8-7.8); Neutrophils % 66.7 % (37.0-80.0); Platelet Count 225 K/mm3 (142-424); Red Blood Count 5.75 M/mm3 (4.60-6.20); Red Cell Distribution Width 13.9 % (11.5-17.5); White Blood Count 8.1 K/mm3 (4.8-10.8)
[2023-11-06 08:58] LABS: Chloride 107 mmol/L (98-107); Potassium 3.6 mmoL/L (3.5-5.1); Sodium 144 mmol/L (136-145)
[2023-11-06 09:01] LABS: Blood Urea Nitrogen 20 mg/dl (9-20); Creatinine Clearance Estimated 99 mL/min (50-200); Estimated Glomerular Filt Rate 62 ml/min (>60); GFR (African American) 75 ML/MIN (>60)
[2023-11-06 09:02] LABS: Anion Gap 9.6 mEq/L (5-15); Calcium 9.9 mg/dl (8.4-10.2); Carbon Dioxide 31 mmol/L (22.0-30.0); Glucose 102 mg/dl (74-100)
[2023-11-06] MEDS: HEPARIN 1,000 UNITS/500ML NS (CATH LAB) 3000 UNIT IV (09:51)
[2023-11-06] MEDS: 0.9 % SODIUM CHLORIDE 500 ML 25 ML IV (09:51)
[2023-11-06] MEDS: LIDOCAINE 1% 10ML MDV 20 ML IJ (09:51)
[2023-11-06] MEDS: HEPARIN 1,000 UNITS/ML 10ML VIAL (CATH LAB) 10000 UNIT IV (09:51)
[2023-11-06] MEDS: diphenhydrAMINE 50MG/ML VIAL 50 MG IV (09:52)
[2023-11-06] MEDS: VERAPAMIL 2.5MG/ML 2ML VIAL 2.5 MG IV (09:52)
[2023-11-06] MEDS: MIDAZOLAM HCL 1MG/1ML 5ML VIAL 1 MG IV (10:10)
[2023-11-06] MEDS: FENTANYL 100MCG/2ML VIAL 50 MCG IV (10:11)
[2023-11-06] MEDS: CLOPIDOGREL 300MG TABLET 600 MG PO (11:07)
[2023-11-06] MEDS: IOPAMIDOL-370 (76%);100ML BOTTLE 90 ML IV (12:33)
[2023-11-06] MEDS: IOPAMIDOL-250 (51%) 100ML BOT 120 ML IV (12:33)
[2023-11-06 14:33] LABS: CATHL Activated Clotting Time > 400 SEC (74-125)
== END 2023-11-06 13:50 | disposition home or self-care (01) ==
PROVIDERS: PCP Family Medicine; Referring Provider Physician Assistant; Visit Provider Internal Medicine
DX: I25.118 Atherosclerotic heart disease of native coronary artery with other forms of angina pectoris (principal); I77.1 Stricture of artery; F17.210 Nicotine dependence, cigarettes, uncomplicated; Z79.899 Other long term (current) drug therapy; I44.1 Atrioventricular block, second degree; I48.0 Paroxysmal atrial fibrillation; Z95.0 Presence of cardiac pacemaker; I73.9 Peripheral vascular disease, unspecified; I70.203 Unspecified atherosclerosis of native arteries of extremities, bilateral legs; I10 Essential (primary) hypertension
CPT/HCPCS: 36247; 75716; 80048; 85025; 85347; 92928; 93458; 99152; 99153; C1725; C1760; C1769; C1874; C9600; J1644; J2250; J3010; Q9966; Q9967

== ENCOUNTER 2023-11-12 07:26 | Outpatient (CLI) | payer BC, SELFPAY ==
[2023-11-12 07:39] LABS: Basophils # 0.1 K/mm3 (0-0.2); Eosinophils # 0.2 K/mm3 (0.0-0.4); Eosinophils % 2.7 % (0.1-12.0); Hematocrit 49.1 % (42.0-52.0); Hemoglobin 16.1 g/dL (14.1-18.0); Lymphocytes # 2.2 K/mm3 (0.7-4.5); Lymphocytes % 24.4 % (10-50); Mean Corpuscular HGB Conc 32.9 g/dL (31.8-35.4); Mean Corpuscular Hemoglobin 29.9 pg (27.0-31.2); Mean Platelet Volume 8.1 fl (7.4-10.4); Monocytes # 0.5 K/mm3 (0.1-1.0); Monocytes % 5.2 % (1.7-9.3); Neutrophils % 66.8 % (37.0-80.0); Platelet Count 217 K/mm3 (142-424); Red Blood Count 5.39 M/mm3 (4.60-6.20); Red Cell Distribution Width 13.8 % (11.5-17.5)
[2023-11-12 09:15] LABS: Anion Gap 9.3 mEq/L (5-15); Blood Urea Nitrogen 26 mg/dl (9-20); Calcium 9.8 mg/dl (8.4-10.2); Carbon Dioxide 27 mmol/L (22.0-30.0); Chloride 109 mmol/L (98-107); Estimated Glomerular Filt Rate 76 ml/min (>60); GFR (African American) 92 ML/MIN (>60); Glucose 94 mg/dl (74-100); Potassium 4.3 mmoL/L (3.5-5.1); Sodium 141 mmol/L (136-145)
== END 2023-11-12 23:59 | disposition home or self-care (01) ==
LOC: LAB 07:27
PROVIDERS: PCP Family Medicine; Visit Provider Internal Medicine
DX: I25.10 Atherosclerotic heart disease of native coronary artery without angina pectoris (principal)
CPT/HCPCS: 36415; 80048; 85025

== ENCOUNTER 2023-11-29 07:39 | Day surgery (SDC) | payer BC, SELFPAY ==
[2023-11-29] VITALS (14 sets, daily range): BP systolic 119–143; BP diastolic 78–96; PULSE 70–77; RESP 14–20; TEMP 36.7–37.1; O2SAT 93–98; BMI 33.3
--- NOTE | 2023-11-29 07:10 | IR_ITS ---
APPROVED REPORT Patient Location: Outpatient Product Support Specialist: MEREDITH Palm RT (R) PROCEDURES Left femoral arterial access Catheter placement in the right superficial femoral artery Right superficial femoral artery antegrade angiogram Drug-coated balloon angioplasty to the right superficial femoral artery Informed consent was obtained prior to the procedure. COMPLICATIONS None Estimated Blood Loss: Less than 10 mls TECHNIQUE 1% lidocaine used anesthetize the left groin left femoral artery was accessed via the Salinger technique and a 6 Zimbabwean sheath is placed in the left femoral artery. A rim catheter was placed in the right common iliac artery and under fluoroscopic guidance and advantage wire was placed into the right superficial femoral artery. The short 6 Zimbabwean sheath was exchanged for a long destination sheath. Antegrade angiography was performed. Therapeutic Was administered giving a therapeutic ACT. The advantage wire was placed distally into the right superficial femoral artery and a 7 mm x 40 mm drug-coated balloon was inflated at 14 harry for 3 minutes reducing the stenosis to 0%. Excellent angiographic results were obtained at the end the procedure the apparatus was removed the groin is reprepped closure change sheath was removed and hemostasis was achieved using Perclose device patient was transferred to the postop putting in stable condition ANGIOGRAPHIC RESULTS Right superficial femoral artery has a concentric focal 90% stenosis IMPRESSION Successful drug-coated balloon angioplasty of the right superficial femoral artery severe disease reduced to less than 10% with 1 drug-coated balloon angioplasty PLAN 1. Risk factor modification 2. LDL less than 55 to be achieved high intensity statin 3. Avoidance of tobacco products 4. Physical therapy Electronically signed by : Terry Grayson MD 11/29/2023 10:37:59
[2023-11-29 08:06] LABS: Basophils # 0.1 K/mm3 (0-0.2); Basophils % 1.2 % (0.1-2.0); Eosinophils # 0.2 K/mm3 (0.0-0.4); Eosinophils % 1.8 % (0.1-12.0); Hematocrit 51.1 % (42.0-52.0); Hemoglobin 16.6 g/dL (14.1-18.0); Lymphocytes # 2.3 K/mm3 (0.7-4.5); Lymphocytes % 22.6 % (10-50); Mean Corpuscular HGB Conc 32.5 g/dL (31.8-35.4); Mean Corpuscular Hemoglobin 30.3 pg (27.0-31.2); Mean Corpuscular Volume 93.5 fl (80-94); Mean Platelet Volume 7.9 fl (7.4-10.4); Monocytes # 0.5 K/mm3 (0.1-1.0); Monocytes % 4.5 % (1.7-9.3); Neutrophils # 7.1 K/mm3 (1.8-7.8); Platelet Count 214 K/mm3 (142-424); Red Blood Count 5.47 M/mm3 (4.60-6.20); Red Cell Distribution Width 13.7 % (11.5-17.5); White Blood Count 10.2 K/mm3 (4.8-10.8)
[2023-11-29] MEDS: CLOPIDOGREL 75MG TAB 75 MG PO (08:06)
[2023-11-29] MEDS: MIDAZOLAM HCL 1MG/1ML 5ML VIAL 1 MG IV (08:29)
[2023-11-29] MEDS: HEPARIN 1,000 UNITS/500ML NS (CATH LAB) 3000 UNIT IV (08:29)
[2023-11-29] MEDS: FENTANYL 100MCG/2ML VIAL 50 MCG IV (08:30)
[2023-11-29 08:35] LABS: Anion Gap 10.4 mEq/L (5-15); Blood Urea Nitrogen 29 mg/dl (9-20); Calcium 9.4 mg/dl (8.4-10.2); Carbon Dioxide 28 mmol/L (22.0-30.0); Chloride 105 mmol/L (98-107); Creatinine Clearance Estimated 84 mL/min (50-200); Estimated Glomerular Filt Rate 52 ml/min (>60); GFR (African American) 63 ML/MIN (>60); Glucose 103 mg/dl (74-100); Potassium 3.4 mmoL/L (3.5-5.1); Sodium 140 mmol/L (136-145)
[2023-11-29] MEDS: HEPARIN 1,000 UNITS/ML 10ML VIAL (CATH LAB) 10000 UNIT IV (08:35)
[2023-11-29] MEDS: LIDOCAINE 1% 10ML MDV 20 ML IJ (08:35)
[2023-11-29] MEDS: FENTANYL 250MCG/5ML VIAL 50 MCG IV (10:36)
[2023-11-29] MEDS: IOPAMIDOL-250 (51%) 100ML BOT 50 ML IV (11:11)
[2023-11-29 11:27] LABS: CATHL Activated Clotting Time 382 SEC (74-125)
== END 2023-11-29 12:50 | disposition home or self-care (01) ==
PROVIDERS: PCP Family Medicine; Visit Provider Internal Medicine
DX: I48.0 Paroxysmal atrial fibrillation (principal); Z79.899 Other long term (current) drug therapy; Z95.0 Presence of cardiac pacemaker; I10 Essential (primary) hypertension; R93.1 Abnormal findings on diagnostic imaging of heart and coronary circulation; I44.1 Atrioventricular block, second degree; R94.31 Abnormal electrocardiogram [ECG] [EKG]; F17.210 Nicotine dependence, cigarettes, uncomplicated; I70.211 Atherosclerosis of native arteries of extremities with intermittent claudication, right leg
CPT/HCPCS: 37224; 80048; 85025; 85347; 99152; C1725; C1760; C1766; C1769; C1894; J1644; J2250; J3010; Q9966

== ENCOUNTER 2024-03-13 07:42 | Outpatient (CLI) | payer BC, SELFPAY ==
[2024-03-13 08:27] LABS: Alanine Aminotransferase 18 U/L (12-78); Albumin Level 3.9 g/dl (3.5-5.0); Alkaline Phosphatase 83 U/L (38-126); Aspartate Amino Transferase 22 U/L (17-59); Bilirubin,Direct 0.2 mg/dl (0.0-0.4); Bilirubin,Indirect 0.6 mg/dL (0.0-0.9); Bilirubin,Total 0.8 mg/dl (0.2-1.3); Bilirubin,Unconjugated 0.5 mg/dL (0.0-1.1); Chol/HDL Ratio 4.1 (1-3.5); Cholesterol 150 mg/dl (140-200); HDL Cholesterol 37 mg/dl (40-60); Total Protein,Serum 6.2 g/dl (6.3-8.2); Triglycerides 258 mg/dl (30-150); VLDL Cholesterol 52 mg/dL (0-40)
[2024-03-13 08:37] LABS: Direct LDL Cholesterol 75.69 mg/dL (100-129)
== END 2024-03-13 23:59 | disposition home or self-care (01) ==
LOC: LAB 07:43
PROVIDERS: PCP Family Medicine; Visit Provider Physician Assistant
DX: I25.10 Atherosclerotic heart disease of native coronary artery without angina pectoris (principal); Z95.5 Presence of coronary angioplasty implant and graft; I73.9 Peripheral vascular disease, unspecified; R94.31 Abnormal electrocardiogram [ECG] [EKG]; I10 Essential (primary) hypertension; Z87.19 Personal history of other diseases of the digestive system; I11.9 Hypertensive heart disease without heart failure; Z72.0 Tobacco use
CPT/HCPCS: 36415; 80061; 80076

== ENCOUNTER 2024-05-02 09:10 | Emergency (ER) | payer BC, SELFPAY ==
[2024-05-02] VITALS (7 sets, daily range): BP systolic 102–132; BP diastolic 72–89; PULSE 60–72; RESP 20; TEMP 36.7–36.8; O2SAT 93–95; BMI 34.4
--- NOTE | 2024-05-02 09:31 | CT_ITS ---
FINAL REPORT TECHNIQUE: Axial imaging of the chest is obtained after the administration of contrast. 3-D MIP reformatted images were also obtained and reviewed per PE protocol. CLINICAL HISTORY: sudden back pain, diaphoresis, near syncope FINDINGS: The pulmonary arteries are well filled. There is no evidence of pulmonary embolus. There is no aortic dissection. Heart size is normal. There is no mediastinal, hilar, or axillary lymphadenopathy. There is groundglass opacity in the left lower lobe which could be atelectasis or could be infectious or inflammatory. Multiple bilateral calcified granulomas are seen. The lungs are otherwise clear. There is no pleural or pericardial effusion. No acute osseous abnormality. IMPRESSION: No thoracic aortic dissection or pulmonary embolus. Left lower lobe groundglass opacity could be atelectasis. Pneumonia is not excluded. Reviewed, Interpreted and Dictated by Martine Conteh MD Transcribed by Lesly Sarkar Authenticated and [facility]
--- NOTE | 2024-05-02 09:31 | CT_ITS ---
FINAL REPORT TECHNIQUE: Thin section axial images were obtained through the abdomen and pelvis after contrast injection per CT angiogram protocol. Multiplanar reconstruction images were obtained from the axial data. This exam was performed with techniques to keep radiation dose as low as reasonably achievable. This includes automated exposure control, adjustment of the MA and KVP, and iterative reconstruction technique. CLINICAL HISTORY: sudden back pain, diaphoresis, near syncope FINDINGS: CTA ABDOMEN AND PELVIS CTA: No abdominal aortic aneurysm or aortic dissection. The celiac axis, superior mesenteric artery, and inferior mesenteric artery are patent without stenosis. The renal arteries are patent. The common iliac arteries and visualized portions of the internal and external iliac arteries are patent. No significant stenosis. NONVASCULAR: The gallbladder is present. The liver is homogeneous but fatty infiltrated. The spleen, adrenal glands, and pancreas are without acute abnormality. There is a probable left renal cyst. There is no hydronephrosis or solid renal mass. The GI tract demonstrates no obstruction. The appendix is normal. There is diverticulosis with no evidence of diverticulitis. No lymphadenopathy or free fluid. No acute osseous abnormality. IMPRESSION: No aortic aneurysm or dissection. Patent branch vessels. Reviewed, Interpreted and Dictated by Martine Conteh MD Transcribed by Lesly Sarkar Authenticated and [facility]
--- NOTE | 2024-05-02 09:33 | ED_ITS ---
Discharge Plan Disposition Patient Disposition: Home, Self-Care Prescriptions Prescriptions: New cyclobenzaprine 5 mg tablet 5 mg PO TID PRN (Reason: muscle spasm) 5 Days Qty: 15 0RF No Action furosemide 20 mg tablet See Rx Instructions .ROUTE .COMPLEX Qty: 90 3RF Dose Instruction: TAKE ONE TABLET BY MOUTH EVERY DAY Rx Instructions: TAKE ONE TABLET BY MOUTH EVERY DAY Eliquis 5 mg tablet See Rx Instructions .ROUTE .COMPLEX Qty: 90 3RF Dose Instruction: TAKE ONE TABLET BY MOUTH TWICE DAILY Rx Instructions: TAKE ONE TABLET BY MOUTH TWICE DAILY amlodipine 5 mg tablet 5 mg PO DAILY Qty: 30 5RF lisinopril 10 mg tablet 10 mg PO DAILY 90 Days Qty: 90 3RF metoprolol succinate 100 mg tablet extended release 24 hr 100 mg PO DAILY Qty: 30 2RF atorvastatin [Lipitor] 40 mg Tablet 40 mg PO DAILY 30 Days Qty: 30 6RF clopidogrel [Plavix] 75 mg Tablet 75 mg PO DAILY 30 Days Qty: 30 6RF Referrals Follow up/Referrals: Jesi Combs MD [Primary Care Provider] - See instructions Activity Restrictions/Add. Instructions Additional Instructions/Restrictions: No evidence of an acute cardiopulmonary emergency specifically no evidence of a dissection etc. Your symptoms in retrospect are most likely secondary to musculoskeletal strain and muscle laxer has been prescribed otherwise you may follow-up with primary care doctor as needed. I do also recommend you follow-up with your technicians and trades workers given the fact that you had some near passing out symptoms associated with his Clinical Impressions Clinical Impression: Back pain, Near syncope Print Language Print Language: Mauritian Discharge ED Provider: Kimo Coats General Adult HPI General Chief complaint: PAIN Stated complaint: back pain Time Seen by Provider: 05/02/24 09:18 History of Present Illness HPI narrative: Patient is a 58-year-old male who presents today with significant back pain. States that yesterday he developed sudden midthoracic back pain that was associated with diaphoresis and lightheadedness with near syncope. Does have a history of coronary disease has had multiple stents has a pacemaker also has peripheral vascular disease and had stents in his leg he states. States that the pain and the severe episode lasted for several hours and that he went home and could not get comfortable throughout the evening being woken up twice once at 1 AM once at 4 AM being unable to get in a comfortable position he eventually took Tylenol which improved some of his symptoms. Still has significant back pain but the diaphoresis and lightheadedness have since resolved. He denies any lower extremity symptoms at the moment. Or any other neurologic complaints. Patient also states that during this episode he had some epigastric pressure he states. Related Data Previous Rx's ?Medication ?Instructions ?Recorded atorvastatin 40 mg tablet (Lipitor) 40 mg PO DAILY 30 days #30 tabs 11/06/23 clopidogrel 75 mg tablet (Plavix) 75 mg PO DAILY 30 days #30 tabs 11/06/23 furosemide 20 mg tablet See Rx Instructions .Route 12/06/23 .COMPLEX #90 tabs apixaban 5 mg tablet (Eliquis) See Rx Instructions .Route 12/10/23 .COMPLEX #90 tabs amlodipine 5 mg tablet 5 mg PO DAILY #30 tabs 01/21/24 lisinopril 10 mg tablet 10 mg PO DAILY 90 days #90 tabs 03/04/24 metoprolol succinate 100 mg 100 mg PO DAILY #30 tabs 04/04/24 tablet,extended release 24 hr cyclobenzaprine 5 mg tablet 5 mg PO TID PRN muscle spasm 5 05/02/24 days #15 tabs Allergies Allergy/AdvReac Type Severity Reaction Status Date / Time No Known Allergies Allergy Verified 03/11/24 14:22 [facility] Disclaimer: The information contained in this section may have been updated after the patient was seen, as this information can be updated by other users. Medical History Abnormal ankle brachial index (MIGDALIA) Abnormal findings on diagnostic imaging of heart and coronary circulation Claudication SOB (shortness of breath) on exertion Pacemaker Abnormal EKG Hypertension Poor peripheral circulation History of gastroesophageal reflux (GERD) Surgical History S/P cardiac cath History of colonoscopy History of hernia repair Family History Other No significant family history Social History Smoking Status: Never smoker alcohol intake: former substance use type: denies use current occupational status: employed Travel in the last 8 weeks: None household members: spouse housing: house current occupation: [employer] current occupational exposures/hazards: No caffeine: Yes Have you lived/traveled outside [place] in past 30 days?: No Contact w/someone who lives/traveled outside [place] past 30 days?: No Exposure to someone with infectious disease in past 14 days?: No Do you have a fever (greater than 100.4 F or 38 C)?: No Have you tested positive for COVID-19: No Exposed to someone with COVID-19 in past 14 days?: No Do you have a sore throat?: No Do you have a cough?: No Do you have any weakness?: No Do you have any diarrhea?: No Are you experiencing any unusual bleeding?: No Do you have any muscle aches/pain?: Yes Do you have any abdominal pain?: No Are you experiencing loss of taste or smell?: No Other Medical History Have you received the Flu Vaccine for this season: No Have you received the Pneumonia Vaccine: No ROS Obtained: Yes All systems reviewed & no additional complaints except as documented Physical Exam General General appearance: alert and in no apparent distress Respiratory Respiratory exam: Present normal lung sounds bilaterally and respiratory distress Cardiovascular Cardiovascular exam: Present regular rate and normal rhythm Abdominal Exam Abdominal exam: Present soft; Absent distention or tenderness Back Exam Back exam: Absent tenderness Neurological Exam Neurological exam: Present alert and oriented X3 Medical Decision Making Medical Records Screening: Per USPSTF and CDC recommendations, given the prevalence of disease in our region, it is our hospital?s policy to screen for HIV and viral Hepatitis for all patients aged 18 and over and those with ongoing risk factors. Frantz Inquiry Pt receiving controlled substance: No Vital Signs: 05/02/24 09:11 05/02/24 09:14 05/02/24 09:30 Temperature 98.0 F Temperature Source Oral Pulse Rate 71 64 Pulse Rate [Right] 72 Respiratory Rate 20 Blood Pressure 130/79 132/89 Blood Pressure [Right Arm] 130/79 Blood Pressure Mean 96 Blood Pressure Mean [Right Arm] 96 Blood Pressure Source [Right Arm] Automatic Cuff 02 Sat by Pulse Oximetry 94 L 95 95 Oxygen Delivery Method Room Air Room Air Room Air 05/02/24 10:00 05/02/24 10:30 05/02/24 11:00 Temperature Temperature Source Pulse Rate 62 66 66 Pulse Rate [Right] Respiratory Rate Blood Pressure 102/72 L 107/77 L 108/76 L Blood Pressure [Right Arm] Blood Pressure Mean Blood Pressure Mean [Right Arm] Blood Pressure Source [Right Arm] 02 Sat by Pulse Oximetry 94 L 93 L 94 L Oxygen Delivery Method Room Air Room Air Room Air Lab Data Lab results reviewed: Yes I reviewed the patient's lab results. Lab Results 05/02/24 09:30: WBC 5.8, RBC 5.43, Hgb 15.9, Hct 48.3, MCV 89.0, MCH 29.3, MCHC 32.9, RDW 12.8, Plt Count 168, MPV 9.7, Neut % (Auto) 54.9, Lymph % (Auto) 35.3, [place] % (Auto) 7.7, Eos % (Auto) 1.4, Baso % (Auto) 0.5, Neut # (Auto) 3.2, Lymph # (Auto) 2.0, [place] # (Auto) 0.4, Eos # (Auto) 0.1, Baso # (Auto) 0.0, PT 11.3, INR 1.01, APTT 33.8 H, Sodium 138, Potassium 3.7, Chloride 102, Carbon Dioxide 28, Anion Gap 11.7, BUN 27 H, Creatinine 1.50 H, Estimated GFR 48 L, Est GFR ( Amer) 58 L, Glucose 97, Calcium 9.6, Total Bilirubin 0.5, AST 38, ALT 29, Alkaline Phosphatase 79, Troponin I < 0.01, Total Protein 6.9, Albumin 4.2, Globulin 2.7, Albumin/Globulin Ratio 1.6, Lipase 81 05/02/24 09:30 05/02/24 09:30 Orders (Tests/Meds): ED MEDICATIONS Discontinued Medications Generic Name Dose Route Start Last Admin Trade Name Freq PRN Reason Stop Dose Admin Sodium Chloride 1,000 mls @ 999 mls/hr 05/02/24 09:45 05/02/24 09:53 Sod Chlor 0.9% 1000ml Bag IV 05/02/24 10:45 999 mls/hr .Q1H1M CHARISSE Administration Iopamidol 80 ml 05/02/24 10:11 05/02/24 10:12 Iopamidol-370 (76%);100ml Bottle IV 05/02/24 10:12 80 ml ONCE ONE Administration Morphine Sulfate 4 mg 05/02/24 09:31 05/02/24 09:53 Morphine 4mg/Ml Syringe IV 05/02/24 09:32 4 mg ONCE ONE Administration Ondansetron HCl 4 mg 05/02/24 09:31 05/02/24 09:52 Ondansetron 4mg/2ml Vial IV 05/02/24 09:32 4 mg ONCE ONE Administration Sodium Chloride 50 ml 05/02/24 10:11 05/02/24 10:12 0.9 % Sodium Chloride 50 Ml Vial IV 05/02/24 10:12 50 ml ONCE ONE Administration Sodium Chloride 10 ml 05/02/24 10:11 05/02/24 10:12 Sodium Chloride 0.9% 10ml Syr (Rad Only) IV 05/02/24 10:12 10 ml ONCE ONE Administration ORDERS Category Date Time Status CT angio abdomen pelvis Stat Cat Scan 05/02/24 09:[address] angio chest - dissection Stat Cat Scan 05/02/24 09:31 Completed CBC w/Auto Diff [Complete Blood Count Auto Diff] Stat Lab 05/02/24 09:30 Completed CMP [Comprehensive Metabolic Panel] Stat Lab 05/02/24 09:30 Completed HIV (1&2) Antibody Rapid Stat Lab 05/02/24 11:04 Ordered Hep C Ab with Reflex to RNA Stat Lab 05/02/24 11:04 Ordered Lipase Stat Lab 05/02/24 09:30 Completed PT/PTT Stat Lab 05/02/24 09:30 Completed Trop I [Troponin I] Stat Lab 05/02/24 09:30 Completed Troponin I Q3H Lab 05/02/24 12:45 Ordered Troponin I Q3H Lab 05/02/24 15:45 Ordered ECG Data Tracing #1: I reviewed this ECG and interpreted as documented below: Ventricular end of 69 arterially paced no acute ischemic changes noted normal axis Medical Decision Narrative: 58-year-old male presenting today with sudden midthoracic back pain associate with diaphoresis and lightheadedness that has persisted through the evening. Differential includes vascular pathology such as aortic dissection mesenteric ischemia pulmonary embolism ACS etc. He has no tenderness on exam and has a normal neurologic exam at the moment. Other pathology could include spinal epidural hematoma etc. CT angio of the chest abdomen pelvis have been ordered in addition to giving IV fluids pain medicine nausea medicine will reassess. EKG nonischemic CT scans performed which I personally interpreted which shows no evidence of aortic dissection or other vascular pathology and no other explanation for the patient's symptoms. Patient feeling much better on reassessment labs unremarkable troponin negative this is not consistent with acute coronary syndrome or acute myocardial injury. Overall in retrospect this most likely musculoskeletal in nature and muscle lectures will be prescribed for the patient patient was discharged in stable condition. Critical Care Critical Care Time Critical Care Time: Yes Attestation: On 05/02/24, the high probability of a clinically significant, sudden or life threatening deterioration of the following system(s) required my full and direct attention, intervention and personal management. The time I documented below is in addition to time spent performing reported procedures but includes the following listed in this critical care notation. Total Time Total Critical Care Time: 35
--- NOTE | 2024-05-02 09:41 | ECG_ITS ---
APPROVED REPORT Exam: Resting ECG HR:69 bpm ECG Measurements Heart Rate 69 AXES IA 207 P 130 QRSd 99 QRS 8 QT 395 T 5 QTc 415 Conclusion ELECTRONIC ATRIAL PACEMAKER ABNORMAL RHYTHM ECG UNCONFIRMED REPORT Electronically signed by : Deuce Coats, 05/02/2024 16:02:18
[2024-05-02] MEDS: ONDANSETRON 4MG/2ML VIAL 4 MG IV (09:52)
[2024-05-02 09:53] LABS: Basophils % 0.5 % (0.1-2.0); Eosinophils # 0.1 K/mm3 (0.0-0.4); Eosinophils % 1.4 % (0.1-12.0); Hematocrit 48.3 % (42.0-52.0); Hemoglobin 15.9 g/dL (14.1-18.0); Lymphocytes % 35.3 % (10-50); Mean Corpuscular HGB Conc 32.9 g/dL (31.8-35.4); Mean Corpuscular Hemoglobin 29.3 pg (27.0-31.2); Mean Platelet Volume 9.7 fl (7.4-10.4); Monocytes # 0.4 K/mm3 (0.1-1.0); Monocytes % 7.7 % (1.7-9.3); Neutrophils # 3.2 K/mm3 (1.8-7.8); Neutrophils % 54.9 % (37.0-80.0); Platelet Count 168 K/mm3 (142-424); Red Blood Count 5.43 M/mm3 (4.60-6.20); Red Cell Distribution Width 12.8 % (11.5-17.5); White Blood Count 5.8 K/mm3 (4.8-10.8)
[2024-05-02] MEDS: MORPHINE 4MG/ML SYRINGE 4 MG IV (09:53)
[2024-05-02] MEDS: 0.9 % SODIUM CHLORIDE 1000ML 1,000 ML 999 ML IV (09:53)
[2024-05-02 09:54] LABS: Albumin Level 4.2 g/dl (3.5-5.0); Chloride 102 mmol/L (98-107); Potassium 3.7 mmoL/L (3.5-5.1); Sodium 138 mmol/L (136-145)
[2024-05-02 09:57] LABS: Alanine Aminotransferase 29 U/L (12-78); Albumin/Globulin Ratio 1.6 (1.1-1.8); Alkaline Phosphatase 79 U/L (38-126); Anion Gap 11.7 mEq/L (5-15); Aspartate Amino Transferase 38 U/L (17-59); Bilirubin,Total 0.5 mg/dl (0.2-1.3); Blood Urea Nitrogen 27 mg/dl (9-20); Calcium 9.6 mg/dl (8.4-10.2); Carbon Dioxide 28 mmol/L (22.0-30.0); Estimated Glomerular Filt Rate 48 ml/min (>60); GFR (African American) 58 ML/MIN (>60); Globulin 2.7 g/dL (1.3-3.2); Glucose 97 mg/dl (74-100); Lipase 81 U/L (23-300); Total Protein,Serum 6.9 g/dl (6.3-8.2)
[2024-05-02 09:58] LABS: Activated Partial Thrombo Time 33.8 seconds (22.8-30.6); INR 1.01 (0.9-1.1); Prothrombin Time 11.3 seconds (10.1-12.5)
[2024-05-02 10:10] LABS: Troponin I < 0.01 ng/ml (0.00-0.034)
[2024-05-02] MEDS: SODIUM CHLORIDE 0.9% 10ML SYR (RAD ONLY) 10 ML IV (10:12)
[2024-05-02] MEDS: IOPAMIDOL-370 (76%);100ML BOTTLE 80 ML IV (10:12)
[2024-05-02] MEDS: 0.9 % SODIUM CHLORIDE 50 ML VIAL IV (10:12)
[2024-05-02 13:49] LABS: HIV Combo NEGATIVE (Negative)
[2024-05-03 06:10] LABS: HCV Ab Non Reactive (Non Reactive)
== END 2024-05-02 11:58 | disposition home or self-care (01) ==
PROVIDERS: Emergency Provider Student in an Organized Health Care Education/Training Program; PCP Family Medicine
DX: M54.9 Dorsalgia, unspecified (principal); R55 Syncope and collapse; R42 Dizziness and giddiness; R61 Generalized hyperhidrosis; R10.13 Epigastric pain
CPT/HCPCS: 71275; 74174; 80053; 83690; 84484; 85025; 85610; 85730; 86803; 87389; 93005; 96361; 96374; 96375; 99291; J2270; J2405; J7030; Q9967

== ENCOUNTER 2024-06-02 12:53 | Outpatient (CLI) | payer BC, SELFPAY ==
--- NOTE | 2024-06-02 12:59 | XR_ITS ---
FINAL REPORT CLINICAL HISTORY: PAIN for a couple weeks, worsening sunday COMPARISON: None FINDINGS: LEFT KNEE 3 views of the left knee were obtained. There is no acute fracture or dislocation. Visualized joint spaces are normally aligned. Soft tissues are unremarkable. IMPRESSION: No acute bony abnormality identified. Reviewed, Interpreted and Dictated by Du Benavides MD Transcribed by Kiki Gandhi Authenticated and [facility]
== END 2024-06-02 23:59 | disposition home or self-care (01) ==
LOC: RAD 12:55
PROVIDERS: PCP Family Medicine; Visit Provider Nurse Practitioner Family
DX: M25.562 Pain in left knee (principal)
CPT/HCPCS: 73562

== ENCOUNTER 2024-08-26 10:55 | Outpatient (CLI) | payer BC, SELFPAY ==
--- NOTE | 2024-08-26 10:58 | XR_ITS ---
FINAL REPORT CLINICAL HISTORY: Right knee pain x 1 week COMPARISON: None FINDINGS: RIGHT KNEE Three views demonstrate no acute fracture or dislocation. The joint spaces appear normal. No acute soft tissue abnormality is seen. IMPRESSION: No acute bony abnormality. Reviewed, Interpreted and Dictated by Du Benavides MD Transcribed by Haven Reed Authenticated and [facility]
== END 2024-08-26 23:59 | disposition home or self-care (01) ==
LOC: RAD 10:56
PROVIDERS: PCP Family Medicine; Visit Provider Physician Assistant
DX: M25.561 Pain in right knee (principal)
CPT/HCPCS: 73562

== ENCOUNTER 2024-11-13 15:16 | Outpatient (CLI) | payer BC, SELFPAY ==
--- OUTSIDE RECORDS SUMMARY | 2024-10-13 06:15 | XMS_ITS ---
[facility] Address [address] [place] [id number] Care Team Providers Care Cutter Grinder Operator Name Role Phone Rafael Hallman Primary Care Provider [phone] Kimo Combs Unavailable [phone] Allergies No Known Allergies REASON FOR VISIT 3 month ckup, Needs labs, low dose chest CT, & shingles vaccine Medications Medication SIG (Take, Route, Frequency, Duration) Notes Start Date End Date Status Eliquis 5 MG 1 tablet Orally Twic e a day; Duration: 30 day(s) Active Clopidogrel Bisulfate 75 MG 1 tablet Ora lly Once a day; Duration: 30 day(s) Active Atorvastatin Calcium 40 MG 1 tablet Oral ly Once a day; Duration: 30 day(s) Active Metoprolol Succinate ER 50 MG 1 tablet Orally Once a day; Duration: 90 days 08/20/2023 Active Furosemide 20 MG 1 tablet Orally Once a day; Duration: 30 day(s) Active Lisinopril 20 MG 1 tablet Orally Once a day; Duration: 30 days Active Problems Problem Type SNOMED Code ICD Code Onset Dates Problem Status W/U Status Risk Notes Problem Obese class II (199728481065 [id number]) BMI 36.0-36.9,aurea lt (Z68.36) Active confirmed Problem Tobacco use (026653418) Tobacco use (Z72.0) Active confirmed Vital Signs Blood pressure systolic 114 mm Hg 10/14/19 25 Blood pressure diastolic 78 mm Hg 025 Heart Rate 84 /min 10/13/2024 Height 68 in 10/13/2024 Weight 241.8 lbs 10/13/2024 BMI 36.76 kg/m2 10/13/2024 Encounters Encounter Location Date Provider Diagnosis [facility] [address] [facility] [address] [place] [id number] 10/13/2024 Kimo Combs Primary hypertension I10 ; Peripheral vascular disease I73.9 ; Status cardiac pacemaker Z95.0 ; BMI 36.0-36.9,adult Z68.36 and Tobacco use Z72.0 Assessments Encounter Date Diagnosis (ICD Code) Assessment Notes Treatment Notes Treatment Clinical Notes Section Notes 10/13/2024 Primary hypertension (ICD-10 - I10) Continue RX 10/13/2024 Peripheral vascular disease (ICD-10 - I73.9) 10/13/2024 Status cardiac pacemaker (ICD-10 - Z95.0) 10/13/2024 BMI 36.0-36.9,adult (ICD-10 - Z68.36) 10/13/2024 Tobacco use (ICD-10 - Z72.0) CT, low dose Plan Of Treatment Treatment Notes Assessment Notes Primary hypertension Continue RX Tobacco use CT, low dose Pending Test Test Name Order Date CT Scan : Chest, low dose 10/13/2024 Next Appt Details Follow Up: 5 M, Reason: Provider Name:Kimo Rose er, 03/02/2025 03:30:00 PM, [address] [facility], [address], [place], [id number], Progress Notes * Lui MORENODOB:1965 ( 59 yo M)Acc No.[id number]:10/13/2024 Progress Notes Patient: Lui KUMAR Provider: Kimo Combs M.D. :1965 A ge:59 Y S ex:Male Date:10/13/2024 Address:[address] [place] [address] [place] Pcp:Rafael Hallman Subjective: * Chief Complaints: * 1 . 3 month ckup. 2. Needs labs, low dose chest CT, & shingles vaccine. * HPI: H PI: 59 year old male presents with c/o Patient is here today for?lab work. Pt is not fasting. C ardiology: c/o Blood Pressure Elevated. c/o Hyperlipidemia. Pt is here today for a 3 month check up on hypertension and hyperlipidemia. Saw Edvin Goldsmith in June. Amlodipine D/C'd. Lisinopril increased to 20mg from 10mg. Still smokes.? Needs CT. * ROS: D ERMATOLOGY: no R shayy. n o H marisol. G ASTROENTEROLOGY: no N ausea. n o V omiting. n o D iarrhea.? U ROLOGY: no D ifficulty urinating. n o B lood in urine. * Medical History: abnormal chest CT, probably normal GXT 2021. * Surgical History: S alivary Gland Surgery , Umbilical Hernia Repair , Colonoscopy, Polyps Removed , pacemaker. [facility], Kenan 08/28/2023, Coronary stents x2 2023, stent to right leg 2023. * Family History: F ather: , cancer. M other: alive. Jagjit bradley: one son . 2 son(s) . . Father was ([place]), met his mother in [facility]. Lived in [place]. * Social History: C URRENT TOBACCO USE: Yes . C affeine: 10 cigarettes daily. Marital Status: . * Medications: T aking Lisinopril 20 MG Tablet 1 tablet Orally Once a day , Taking Atorvastatin Calcium 40 MG Tablet 1 tablet Orally Once a day , Taking Clopidogrel Bisulfate 75 MG Tablet 1 tablet Orally Once a day , Taking Eliquis 5 MG Tablet 1 tablet Orally Twice a day , Taking Furosemide 20 MG Tablet 1 tablet Orally Once a day , Taking Metoprolol Succinate ER 50 MG Tablet Extended Release 24 Hour 1 tablet Orally Once a day , Medication List reviewed and reconciled with the patient * Allergies: N .K.D.A. Objective: * Vitals: W t: 241.8, Temp: 98.0, BP: 114/78, HR: 84, Nurse: mmbaldomero, Ht: 68, BMI:36.76. * Examination: G eneral Examination: General Appearance: N AD. H EENT: u nremarkable.?Oral cavity: n o lesions, mucosa moist and WNL, no erythema. N serge: s upple, no lymphadenopathy. C hest: n ormal shape and expansion. H eart: paced rhythm, 72, S4. L ungs: c lear to auscultation. N eurologic Exam: I ntact, gait normal. S kin: n ormal, no rash. P eripheral pulses: n ormal . E xtremities: n o leg edema?. Assessment: * Assessment: 1. P rimary hypertension - I10 (Primary) 2 . P eripheral vascular disease - I73.9 3 . S tatus cardiac pacemaker - Z95.0 4 . B WI 36.0-36.9,adult - Z68.36 5 . T obacco use - Z72.0 Plan: * Treatment: 2. T obacco use I maging: CT Scan : Chest, low dose Notes: CT, low dose?? * Procedure Codes: G 8950 PREHTN/HTN BP DOC INDCD F/U DOC, G8752 MOST RECENT SYSTOLIC BP < 140MM HG, G8754 MOST RECENT DIASTOLIC BP < 90MM HG, 3017F COLORECTAL CA SCREEN DOC REV * Preventive Medicine: Screening / Special Tests: C olonoscopy , polyps, diverticulosis, hemorrhoids, repeat 2-3 years. * Follow Up: 5 M * Images: Billing Information: * Visit Code: 59955 Office Visit, Est Pt., Level 4. * Procedure Codes: G8950 PREHTN/HTN BP DOC INDCD F/U DOC. G8752 MOST RECENT SYSTOLIC BP < 140MM HG. G8754 MOST RECENT DIASTOLIC BP < 90MM HG. 3017F COLORECTAL CA SCREEN DOC REV. * Electronic signature of Kimo Combs MD on 11/13/2024 at 03:41 PM EDT Sign off status: Pending * Provider: Kimo Combs M.D. Date: 0 10/13/2024 Generated for Fiona ma/Beronica/eTlewissmitting on: 0 11/13/2024 03:41 PM EDT History and Physical Notes * HPI (History of Present Illness) Category Sub-Category Detail Notes Category Not es Cardiology Blood Pressure Elevated Pt i s here today for a 3 month check up on hypertension and hyperlipidemia. Saw Edvin Goldsmith in June. Amlodipine D/C'd. Lisinopril increased to 20mg from 10mg. Still smokes. Needs CT. Hyperlipidemia HPI Patient is here today for lab work. Pt is not fasting Examination Category Sub-Category Detail Notes Category Not es General Examination HEENT: unremarkable Heart: paced rhythm, 72, S4 Lungs: clear to auscultatio n Extremities: no leg edema General Appearance: NAD Skin: normal, no rash Neurologic Exam: Intact, gait normal Neck: supple, no lymphaden opathy Oral cavity: no lesions, mucosa m oist and WNL, no erythema Peripheral pulses: normal Chest: normal shape and exp ansion
--- NOTE | 2024-11-13 15:18 | CT_ITS ---
FINAL REPORT CLINICAL HISTORY: SCREENING Current smoker for 52 years of 1/2 ppd COMPARISON: LDCT 11/15/2021, CTA chest 05/02/2024 FINDINGS: CT CHEST LOW DOSE SCREENING 59-year-old male, current smoker, 32-pohv-rrjp history. HISTORY: Screening exam for lung cancer. DOSE: CTDI vol: 2.90 mGy, DLP: 110.46 mGy*cm TECHNIQUE: Axial CT without IV contrast administration using low dose protocol. This study was performed with techniques to keep radiation doses as low as reasonably achievable, (ALARA). Individualized dose reduction techniques using automated exposure control or adjustment of mA and/or kV according to the patient's size were employed. No acute lung disease is present. There is evidence of prior granulomatous disease, with extensive calcified granulomas noted bilaterally. There is a 6 mm left lower lobe subpleural noncalcified nodule, best seen on image #57 of series 3, stable since 2021, most likely representing a granuloma. There is a 5 mm right lower lobe nodule, noncalcified, best seen on image #59 of series 3, also stable since 2021. No new nodules are identified. No pleural or pericardial effusion is seen. No adenopathy or mass lesion is present. IMPRESSION: Stable nodules as described above. LUNG RADS CATEGORY 2 RECOMMENDATION: 12 month LDCT follow up Reviewed, Interpreted and Dictated by Jesi Cristobal MD Transcribed by Kiki Gandhi Authenticated and . [facility]
--- OUTSIDE RECORDS SUMMARY | 2024-11-13 15:40 | XMS_ITS | Patient Health Record ---
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 Role Phone Rafael Hallman Primary Care Provider [phone] Kimo Combs Unavailable [phone] Eder Dexter Unavailable [phone] Trinity Owens Unavailable [phone] Agnieszka Christine Unavailable [phone] Allergies No Known Allergies Results Component Value Reference Range Notes X ray : Knee, left Reviewed date:06/03/2024 09:16:58 AM Interpretation:no acute changes Performing Lab: Notes/Report: no acute changes P-Comprehensive Metabolic Pa ramón (CMP) Reviewed date:02/06/2024 01:23:45 PM Interpretation:satisfactory Performing Lab: Notes/Report: Test performed by [facility], [email or web address] [address] [place] [address] , [address], [place] [address] Alejo Gonzalez MD, X Ray Equipment Mechanic CLIA: [id number] Sodium 142 135-145 mmol/L Potassium 3.9 3.5-5.3 mmol/L Chloride 103 97-108 mmol/L CO2 30 22-32 mmol/L Glucose 113 65-99 mg/dL BUN 21 8-23 mg/dL Creatinine 1.11 0.70-1.30 mg/dL Calcium 9.8 8.6-10.4 mg/dL eGFR by Creatinine 76 >59 mL/min/1.73m2 Protein 6.8 6.0-8.3 g/dL Albumin 4.1 3.5-5.3 g/dL Alkaline Phosphatase 96 40-129 IU/L ALT (SGPT) 14 <5-55 IU/L AST (SGOT) 17 <5-46 IU/L Bilirubin, Total 0.5 <0.2-1.2 mg/dL A/G Ratio 1.5 1.1-2.5 P-PSA Reviewed date:02/07/2024 12:00:12 PM Interpretation:Normal Performing Lab: Notes/Report: Test performed by [facility] [address] [place] [address] [address], [place] [address] Alejo Gonzalez MD, X Ray Equipment Mechanic CLIA: [id number] PSA 0.37 <4.00 ng/mL Please note this is an ultrasensitive PSA assay with a lower limit of detection of 0.014 ng/mL. This test is performed by the Hilda ECLIA methodology. Values obtained with different assay methods or kits cannot be directly compared. P-Comprehensive Metabolic Pa ramón (CMP) Reviewed date:07/08/2024 08:57:07 AM Interpretation:gluc 152, bun 24 Performing Lab: Notes/Report: Test performed by [facility] [address] [place] [address] [address], [place] [address] Alejo Gonzalez MD, X Ray Equipment Mechanic CLIA: [id number] Sodium 141 135-145 mmol/L Potassium 3.8 3.5-5.3 mmol/L Chloride 105 97-108 mmol/L CO2 27 22-32 mmol/L Glucose 152 65-99 mg/dL BUN 24 8-23 mg/dL Creatinine 1.24 0.70-1.30 mg/dL Calcium 9.5 8.6-10.4 mg/dL eGFR by Creatinine 66 >59 mL/min/1.73m2 Protein 6.1 6.0-8.3 g/dL Albumin 4.0 3.5-5.3 g/dL Alkaline Phosphatase 79 40-129 IU/L ALT (SGPT) 15 <5-55 IU/L AST (SGOT) 15 <5-46 IU/L Bilirubin, Total 0.4 <0.2-1.2 mg/dL A/G Ratio 1.9 1.1-2.5 P-Lipid Panel Reviewed date:07/08/2024 08:57:07 AM Interpretation:trigs 216, hdl 33 Performing Lab: Notes/Report: Test performed by [facility] [address] [place] [address] , [place] [address] Alejo Gonzalez MD, X Ray Equipment Mechanic [facility]: [id number] Cholesterol 156 <200 mg/dL Triglycerides 216 <150 mg/dL HDL Cholesterol 33 >39 mg/dL Cholesterol / HDL Ratio 4.73 0.00-4.99 Ratio Non-HDL Cholesterol 123 <130 mg/dL LDL Cholesterol (Calculation) 80 <130 mg/dL LDL Cholesterol Levels* Less than 100 mg/dL Optimal 100 to 129 mg/dL Near Optimal/ Above Optimal 130 to 159 mg/dL Borderline High 160 to 189 mg/dL High 190 mg/dL and above Very High * Categories as recommended by the 2004 ATPIII guidelines LDL/HDL Ratio 2.4 <3.3 Ratio LDL Cholesterol Patient History Test Date: 07/07/2024 LDL Results: 80 Units: mg/dL % Change: - Reason For Referral Diagnosis 1 Left knee pain (M25. 562) Diagnosis 2 Effusion, left knee (M25.462) Referral Organization [facility] Referring Provider First Name Agnieszka Referring Provider Last Name Nanci Referring Provider Speciality Physician Picc Nurse Referred Provider Orthopedics, . Referred Provider Specialty Orthopedic S urgery General Notes Agnieszka Christine 06/11 2:46:57 PM > Pt needs an appt with Jessenia Alegria Brynn 06/12/2024 11:18:18 AM > 06/17/2024 at 02:00pm Referral Priority Routine Medications Medication SIG (Take, Route, Frequency, Duration) [...] Once a day; Duration: 30 days Active Metoprolol Succinate ER 50 MG 1 tablet Orally Once a day; Duration: 90 days 08/20/2023 Active Furosemide 20 MG 1 tablet Orally Once a day; Duration: 30 day(s) Active Immunizations Vaccine Route Administration Date Status Comme nts Tetanus Tdap-Adacel (over 7yrs) IM Intramuscular 08/09/2021 Administered Pttolerated wel l Problems Problem Type SNOMED Code ICD Code Onset Dates Problem Status W/U Status Risk Notes Problem Gastroesophageal reflux disease (265389037) GERD (gastroesophage al reflux disease) (K21.9) Active confirmed Problem Sick sinus syndrome (56029913) Sick sinus syndrome (I49.5) Active confirmed Problem Tobacco use (170227760) Tobacco use (Z72.0) Active confirmed Problem Peripheral vascular disease (817639895) Peripheral vascular disease (I73.9) Active confirmed Problem History of polyp of colon (situation) (314922294) History of colon polyps (Z86.010) Active confirmed Problem Cardiac pacemaker in situ (892773310) Status cardiac pacemaker (Z95.0) Active confirmed Problem Obese class II (936196517818048) BMI 36.0-36.9,adult (Z68.36) Active confirmed Problem Dermatitis (898428859) Dermatitis (L30.9) Active confirmed Problem Dyslipidemia (939487819) Dyslipidemia (E78.5) Active confirmed Problem Cardiac arrhythmia (861459556) Irregular heart rate (I49.9) Active confirmed Problem Benign prostatic hypertrophy without outflow obstruction (982971854) Benign prostatic hyperplasia without lower urinary tract symptoms (N40.0) Active confirmed Problem Cardiac arrhythmia (513119061) Cardiac arrhythmia, unspecified cardiac arrhythmia type (I49.9) Active confirmed Problem Ectopic beats (09583200) Ectopic beats (I49.49) Active confirmed Problem Tomography - chest abnormal (775797282) Abnormal CT of the chest (R93.89) Active confirmed Problem Primary hypertension (02916509) Primary hypertension (I10) Active confirmed Problem Varicose veins of bilateral lower limbs (14869877652959007) Asymptomatic varicose veins of lower extremity without complication, bilateral (I83.93) Active confirmed Problem Pain due to varicose veins of lower extremity (481725949) Varicose veins with pain (I83.819) Active confirmed Vital Signs Heart Rate 84 /min 10/13/2024 Blood pressure diastolic 78 mm Hg 10/13/2024 Height 68 in 10/13/2024 Blood pressure systolic 114 mm Hg 10/13/2024 Weight 241.8 lbs 10/13/2024 BMI 36.76 kg/m2 10/13/2024 Encounters Encounter Location Date Provider Diagnosis [facility] [address] [facility] [address] [id number] 02/04/2024 Kimo Combs Primary hypertension I10 ; Peripheral vascular disease I73.9 ; Status cardiac pacemaker Z95.0 ; Varicose veins with pain I83.819 and Benign prostatic hyperplasia without lower urinary tract symptoms N40.0 [facility] [address] [facility] [address], [place] [id number] 05/24/2024 Eder Laredo Rash R21 [facility] [address] [facility] [address] [id number] 06/02/2024 Trinity Owens Left knee pain M25.5 62 [facility] [address] [place] [facility] [address] [place], [place] [id number] 06/11/2024 Agnieszka Crowdy Left knee pain M25.5 62 and Effusion, left knee M25.462 [facility] [address] [place] [facility] [address] [place], [place] [id number] 07/07/2024 Kimo Combs Primary hypertension I10 ; Dyslipidemia E78.5 ; Status cardiac pacemaker Z95.0 and Peripheral vascular disease I73.9 [facility] [address] [place] [facility] [address] [place], [place] [id number] 10/13/2024 Kimo Combs Primary hypertension I10 ; Peripheral vascular disease I73.9 ; Status cardiac pacemaker Z95.0 ; BMI 36.0-36.9,adult Z68.36 and Tobacco use Z72.0 [facility] [address] [place] [id number] 12/20/2023 Rafael Hallman Cardiac arrhythmia, unspecified cardiac arrhythmia type I49.9 [facility] [address] [place] [id number] 07/08/2024 Kimo Combs Assessments Encounter Date Diagnosis (ICD Code) Assessment Notes Treatment Notes Treatment Clinical Notes Section Notes 12/20/2023 Cardiac arrhythmia, unspecified cardiac arrhythmia type (ICD-10 - I49.9) 02/04/2024 Peripheral vascular disease (ICD-10 - I73.9) 02/04/2024 Primary hypertension (ICD-10 - I10) Discussed smoking cessation, discussed weight loss 05/24/2024 Rash (ICD-10 - R21) 06/02/2024 Left knee pain (ICD-10 - M25.562) ice/heat application; elevate; use cane for assistance; meds with food 06/11/2024 Left knee pain (ICD-10 - M25.562) Will make referral to ortho for possible injection. Knee x-ray showed nothing acute and oral steroids gave him some relief. Will remain off work until ortho f/u as he cannot stand on concrete all day. 06/11/2024 Effusion, left knee (ICD-10 - M25.462) 07/07/2024 Dyslipidemia (ICD-10 - E78.5) 07/07/2024 Primary hypertension (ICD-10 - I10) continue current therapy 10/13/2024 Peripheral vascular disease (ICD-10 - I73.9) 10/13/2024 Primary hypertension (ICD-10 - I10) Continue RX 07/07/2024 Status cardiac pacemaker (ICD-10 - Z95.0) 10/13/2024 Status cardiac pacemaker (ICD-10 - Z95.0) 02/04/2024 Status cardiac pacemaker (ICD-10 - Z95.0) 10/13/2024 BMI 36.0-36.9,adult (ICD-10 - Z68.36) 07/07/2024 Peripheral vascular disease (ICD-10 - I73.9) 02/04/2024 Varicose veins with pain (ICD-10 - I83.819) 10/13/2024 Tobacco use (ICD-10 - Z72.0) CT, low dose 02/04/2024 Benign prostatic hyperplasia without lower urinary tract symptoms (ICD-10 - N40.0) Plan Of Treatment Pending Test Test Name Order Date CT Scan : Chest, low dose 10/13/2024 Next Appt Details Provider Name:Kimo Reed Rose er, 03/02/2025 03:30:00 PM, [address], [place], [place], [id number], Insurance Providers Payer Name Payer Address Payer Phone Subscriber Number Group Number Insured Name Patient Relationship to Insured Coverage Start Date Coverage End Date [employer] [address] [place] [address] [id number] Lui Smith Self - patient is the insured Medical (General) History Medical History History ICD Code 10/[address] probably normal GXT 2021 Surgical History Surgery Date(Month/Year) Salivary Gland Surgery Umbilical Hernia Repair Colonoscopy, Polyps Removed pacemaker. [facility] [place] 08/28/2023 Coronary stents x2 2023 stent to right leg 2023
== END 2024-11-13 23:59 | disposition home or self-care (01) ==
LOC: RAD 15:16
PROVIDERS: PCP Family Medicine; Visit Provider Family Medicine
DX: R91.8 Other nonspecific abnormal finding of lung field (principal); Z13.9 Encounter for screening, unspecified; Z72.0 Tobacco use
CPT/HCPCS: 71271